=== PATIENT | female | born 1975 | race Caucasian/White ===

== ENCOUNTER 2024-12-07 10:32 | Inpatient (IN) | payer SELFPAY ==
[2024-12-07] VITALS (23 sets, daily range): BP systolic 111–148; BP diastolic 68–80; PULSE 64–98; RESP 12–21; TEMP 35.6–36.8; O2SAT 93–100; BMI 25.4
--- NOTE | 2024-12-07 10:48 | EKG12_ITS ---
Test Reason : GENERAL Blood Pressure : */* mmHG Vent. Rate : 83 BPM Atrial Rate : * BPM P-R Int : * ms QRS Dur : 82 ms QT Int : 392 ms P-R-T Axes : * 35 41 degrees QTcB Int : 460 ms Sinus rhythm Abnormal ECG Confirmed by SURY WOODSON, AFSHAN ([id number]), development editor PARAM DAVIS ([id number]) on 12/13/2024 11:18:37 AM Referred By: Confirmed By: AFSHAN GA MD
--- NOTE | 2024-12-07 11:38 | EX.ED.DYSGE1 ---
HPI History of Present Illness Chief Complaint: Weakness Narrative Narrative: Patient is a 49-year-old female with a past medical history of cirrhosis, anemia, alcohol use states that she drinks 2 beers daily no hard liquor who presents to the emergency department with chief complaint of I think my hemoglobin is low and wanting detox. Patient states that her last drink was shortly prior to arrival here to the emergency department. She states that she has had delirium tremens before but has not had any seizures. Patient is complaining of some back pain and states that her back pain occurs when her blood count is low. PFSH PFSH Home Medications ?Medication ?Instructions ?Recorded ?Last Taken ?Type Water Pill 3 tab PO DAILY FLUID RETENTION 12/07/24 12/06/24 History pediatric multivitamin no.136 2 tab PO DAILY 12/07/24 12/06/24 History (Children Multivitamin chewable tablet) Allergy/AdvReac Type Severity Reaction Status Date / Time latex Allergy Intermediate Rash Verified 12/07/24 10:36 Social History Smoking Status: Current every day smoker tobacco type: cigarettes ROS ROS ED ROS Narrative Constitutional: Denies fevers, chills, headaches Eyes: Denies change in vision double vision blurry vision Cardiovascular: Denies chest pain or palpitations Respiratory: Denies coughing wheezing shortness of breath Abdomen: Denies abdominal pain nausea vomit diarrhea : Denies urinary symptoms Neurological: Complains of generalized weakness denies numbness, tingling Musculoskeletal: Complains of back pain Skin: Denies rashes or lesions EXAM Physical Exam Narrative Exam Narrative: General: Patient was lying in bed rest comfortably did not appear to be in acute distress Head: Atraumatic, normocephalic Eyes: PERRL bilaterally, EOMI bilaterally, no conjunctival injection noted Neck: Soft, supple, trachea midline Cardiovascular: Regular rate and rhythm no murmurs gallops rubs noted Respiratory: Clear to auscultation bilaterally no rales rhonchi or wheezes noted Abdomen: Soft, nondistended, no tenderness to palpation Extremities: +5/5 strength noted in the bilateral upper and lower extremities, radial pulses +2/4 in the bilateral per extremities, no pedal edema no exam Neurological: Patient following commands and that she was at [facility] year is 2024 Skin: Warm, dry, intact no rashes or lesions noted Const Vital Signs: 12/07/24 10:33 12/07/24 12:32 12/07/24 13:19 Temperature 96.0 F L 97.9 F Temperature Source Temporal Temporal Pulse Rate 88 78 76 Respiratory Rate 16 18 20 H Blood Pressure 111/72 117/78 115/72 Blood Pressure Mean 85 91 86 Blood Pressure Source Pulse Ox 100 95 100 Oxygen Delivery Method Room Air Room Air 12/07/24 13:34 12/07/24 14:00 12/07/24 14:15 Temperature 98.3 F 98 F Temperature Source Temporal Pulse Rate 96 86 Respiratory Rate 21 H 20 H 18 Blood Pressure 148/68 H 116/70 116/70 Blood Pressure Mean 94 85 85 Blood Pressure Source Monitor Pulse Ox 97 95 99 Oxygen Delivery Method Room Air 12/07/24 14:34 12/07/24 15:34 12/07/24 16:22 Temperature 98 F 98.1 F 98.2 F Temperature Source Oral Oral Oral Pulse Rate 86 98 67 Respiratory Rate 19 H 17 14 Blood Pressure 116/75 118/70 118/70 Blood Pressure Mean 88 86 86 Blood Pressure Source Monitor Pulse Ox 100 99 99 Oxygen Delivery Method Room Air Room Air Room Air 12/07/24 16:27 12/07/24 16:30 12/07/24 16:42 Temperature 98 F 98 F 98.1 F Temperature Source Oral Oral Oral Pulse Rate 70 68 70 Respiratory Rate 15 15 14 Blood Pressure 121/71 H 121/70 H 114/78 Blood Pressure Mean 87 87 90 Blood Pressure Source Monitor Pulse Ox 99 99 96 Oxygen Delivery Method Room Air Room Air Room Air MDM MDM MDM Narrative Medical decision making narrative: Patient is a 49-year-old female who presents to the emergency department with a chief complaint of wanting detox, concern for anemia and back pain. On the differential diagnose includes but not limited to anemia, alcohol withdrawal. Once workup is obtained reviewed she will be reevaluated. Patient be given Toradol for pain. Patient will be placed on alcohol withdrawal protocol. Patient CBC reviewed showed a white blood count 1.9, hemoglobin is low at 4.4 she was typed and screened for 3 units, patient has a microcytic anemia MCV of 79.3, plate count was noted be 39 no active bleeding noted, venous blood gas showed pH 7.45. Patient sodium normal 136, potassium normal 3.3, patient's carbon dioxide level low at 16.2, anion gap elevated 17 this likely secondary to alcoholic ketosis, TSH was noted to be 2.58., is negative, urinalysis showed no evidence of infection and drug screen negative. Patient alcohol level was 324. Patient was ordered D5 NS at 100 cc an hour. Patient's case will be discussed with hospitalist for admission for stabilization prior to detox. Discussed case with hospitalist Dr. Millan who would like to add on a fecal occult as well as CTA chest abdomen pelvis which were ordered. Once these are obtained and reviewed she will be reevaluated. Patient's CTA chest abdomen pelvis was reviewed and showed concern for portal hypertension there is thrombosis present within the superior mesenteric, inferior mesenteric vein and potential splenic vein. Large splenorenal shunt present indicative of portal hypertension. Small. [place]ock ascites noted. Heterogeneous appearance of the liver. Given suspicions of portal pretension GI consultation and cirrhosis need to be ruled out. Thickening of the gastroesophageal junction noted. Did give the patient a gram of Rocephin. Discussed case again with Dr. Millan hospitalist who is recommending transfer as well as we do not have gastroenterology on-call today. Did discuss with patient and she states that she has been in the [facility] in the past. Will reach out to [facility] for transfer. Patient's case signed out to oncoming provider to make ultimate disposition see their note for further details. Went back and reevaluated patient and she states that she has had EGD about a year ago and has had varices in the past. States that she had banding of the varices as well. Will wait to discuss with [facility] in regards to octreotide bolus with octreotide drip. She has remained hemodynamically stable thus far in the emergency department. Lab Data Labs: Laboratory Results - last 24 hr 12/07/24 12/07/24 12/07/24 11:35 12:10 13:00 WBC 1.9 L RBC 2.08 L Hgb 4.4 L* Hct 16.5 L MCV 79.3 L MCH 21.2 L MCHC 26.7 L RDW Std Deviation 55.9 H RDW Coeff of Jose Alberto 19.6 H Plt Count 39 L* MPV 10.3 Immature Gran % (Auto) 1.600 H Neut % (Auto) 61.8 Lymph % (Auto) 31.4 Donley % (Auto) 5.2 Eos % (Auto) 0.0 Baso % (Auto) 0.0 Absolute Neuts (auto) 1.2 L Absolute Lymphs (auto) 0.60 L Nucleated RBC % 0 Diff Path Review May foll Platelet Estimate MKD DEC Immature Plt Fraction 4.9 Polychromasia 1+ Anisocytosis 1+ Retic Count 4.03 H Immature Retic Fraction 37.10 H Retic Hgb Equivalent 18.3 L Sodium 136 Potassium 3.3 Chloride 103 Carbon Dioxide 16.2 L Anion Gap 17 H BUN 11 Creatinine 0.51 L Estim Creat Clear Calc 135.26 Est GFR (MDRD) Non-Af 115 BUN/Creatinine Ratio 21.8 H Glucose 88 Calcium 8.3 Iron 13 L TIBC 416 Iron Saturation 3.0 L Unsaturated IBC 403 Ferritin 9 L b-Hydroxybutyric mmol/L 0.4 TSH 2.580 Serum , Qual NEGATIVE Urine Color Yellow Urine Clarity Sl. Cloudy Urine pH 6.0 Ur Specific [place] 1.020 Urine Protein 30 H Urine Glucose (UA) Normal Urine Ketones 5 H Urine Occult Blood 10 H Urine Nitrite Negative Urine Bilirubin Negative Urine Urobilinogen 1 H Ur Leukocyte Esterase Negative Urine RBC 0-5 SEEN Urine WBC 0-5 SEEN Ur Squamous Epith Cells 0-5 SEEN Urine Bacteria 0 SEEN Urine Mucus 0 SEEN Urine Opiates Screen NEGATIVE U Buprenorphine Qual NEGATIVE Ur Oxycodone Screen NEGATIVE Urine Methadone Screen NEGATIVE Urine Fentanyl Screen NEGATIVE Ur Barbiturates Screen NEGATIVE Ur Phencyclidine Scrn NEGATIVE Ur Amphetamines Screen NEGATIVE U Benzodiazepines Scrn NEGATIVE Urine Cocaine Screen NEGATIVE U Cannabinoids Screen NEGATIVE Ethyl Alcohol 324.0 H* Blood Type O NEGATIVE Antibody Screen NEGATIVE Crossmatch See Detail ABG Data ABG results: ABG 12/07/24 13:51 Specimen Type CRISTÓBAL Sample Site Not entered VBG pH 7.45 H VBG pO2 75 H VBG HCO3 18 L VBG Total CO2 18 L VBG O2 Sat (Calc) 96 H VBG Base Excess -6 L POC Mix VBG pCO2 Pt Tmp 25.3 L O2 Delivery Device Not entered Radiography Diagnostic Testing: Clinical Impression(s) from Imaging Studies Chest/Abdomen/Pelvis CTA 12/07/24 14:46 IMPRESSION: Findings worrisome for portal hypertension. Thrombosis is present within the superior mesenteric, inferior mesenteric vein and potentially the splenic vein. Large splenorenal shunt is present, all indicative of portal hypertension. Small perihepatic ascites is seen. Heterogeneous appearance of the liver. Given suspicion of portal hypertension, GI consultation and cirrhosis be ruled out. Thickening of the gastroesophageal junction. Correlate clinically for reflux disease. No evidence of abnormal collection seen within the chest, abdomen and pelvis. One or more dose reduction techniques were used (e.g., Automated exposure control, adjustment of the mA and/or kV according to patient size, use of iterative reconstruction technique). Reading Location: [facility] Discharge Plan Triage Chief Complaint: Weakness ED Provider: Kye Thomas Dx/Rx/DC Orders Prescriptions: No Action Children Multivitamin Tablet,Chewable 2 tab PO DAILY Water Pill tablet 3 tab PO DAILY Rx Instructions: OTC WATER PILL : CALCIUM 132MG, POTASSIUM 101MG, HYDRANGEA ROOT 65MG, CORNSILK 65MG Primary Care Provider: Care Physician,No Primary Referrals: NOT,DEFINED [Non-Staff] - Print Language: Spanish
[2024-12-07 11:52] LABS: Absolute Neutrophil Count 1.2 X10^3/uL (2.0-7.7); Hematocrit 16.5 % (37-47); Lymphocyte % 31.4 % (19-41); Mean Corp Hgb Conc 26.7 g/dL (32-36); Mean Corpuscular Hgb 21.2 pg (27.0-32.0); Mean Corpuscular Volume 79.3 fL (81-99); Mean Platelet Vol. 10.3 fl (6.2-12.0); Monocyte% 5.2 % (0-10); NRBC Flagged by Analyzer 0 % (0-5); Neutrophil # 1.18 X10^3/uL (2.7-7.7); Neutrophil % 61.8 % (47-70); POSITIVE COUNT YES; POSITIVE DIFFERENTIAL YES; RBC Distribution Width CV 19.6 % (11.6-14.6); RBC Distribution Width SD 55.9 fl (35.1-43.9); Red Blood Count 2.08 M/mm3 (4.2-5.4); White Blood Count 1.9 K/mm3 (4.4-11.0)
[2024-12-07] MEDS: Ketorolac 15 MG/ML Vial IV (11:52)
[2024-12-07 11:58] LABS: Differential Indicated SCAN CRITERIA MET
[2024-12-07 11:59] LABS: Hemoglobin 4.4 g/dL (12.0-15.0); Platelet Count 39 K/mm3 (150-450)
[2024-12-07 12:00] LABS: Internal QC Validated? YES +Cl - CLEAR BKGD; Pregnancy, Serum, hCG Quali. NEGATIVE Negative
[2024-12-07 12:43] LABS: Anion Gap 17 (5-15); Anisocytosis 1+; BUN 11 mg/dL (4-19); BUN/Creat Ratio 21.8 RATIO (10-20); Calcium,Total 8.3 mg/dL (7.6-11.0); Carbon Dioxide 16.2 mmol/L (21.0-32.0); Chloride 103 mmol/L (98-108); Creatinine, Serum 0.51 mg/dL (0.70-1.20); EST Glomerular Filtration Rate 115 (>60); Estimated Creatinine Clearance 135.26 ml/min (50-250); Glucose 88 mg/dL (70-99); Platelet Estimate MKD DEC (ADEQ); Polychromasia 1+; Potassium 3.3 mmol/L (3.3-5.1); Sodium Level 136 mmol/L (133-145)
[2024-12-07 12:44] LABS: Pathologist Review May foll
[2024-12-07] MEDS: Morphine 2 MG/ML Syringe IV ×3 (13:05→21:06)
[2024-12-07] MEDS: Ondansetron 4 MG/2 ML Vial IV ×2 (13:05→16:36)
[2024-12-07 13:08] LABS: Bacteria 0 SEEN /hpf (None Seen); Mucous, Urine 0 SEEN /hpf (<or=2+)
[2024-12-07 13:10] LABS: Color, Urine Yellow (Yellow); Glucose, Dipstick Normal (Normal); Ketone-Dipstick 5 mg/dl (Negative); Leukocyte Esterase-Dipstick Negative /ul (Negative); Nitrite-Dipstick Negative (Negative); Occult Blood-Urine 10 /ul (Negative); Protein-Dipstick 30 mg/dl (Negative); Urine Bilirubin Dipstick Negative (Negative); Urine Clarity Sl. Cloudy (Clear); Urine Urobilinogen 1 mg/dl (Normal)
[2024-12-07 13:28] LABS: Red Blood Cells-Urine 0-5 SEEN /hpf (0-5); Squamous Epithelial Cells - UA 0-5 SEEN /hpf (5-10); White Blood Cells 0-5 SEEN /hpf (0-5)
[2024-12-07 13:43] LABS: Amphetamine Urine NEGATIVE (<1000 ng/mL); Barbiturate Urine NEGATIVE (< 200 ng/mL); Benzodiazepine Urine NEGATIVE (< 200 ng/mL); Buprenorphine Urine NEGATIVE (< 200 ng/mL); Cocaine Urine NEGATIVE (< 300 ng/mL); Fentanyl, Urine NEGATIVE; Methadone Urine NEGATIVE (< 300 ng/mL); Opiates Urine NEGATIVE (< 300 ng/mL); Oxycodone, Urine NEGATIVE (< 100 ng/mL); PCP Urine NEGATIVE (< 25 ng/mL); THC Urine NEGATIVE (< 50 ng/mL)
[2024-12-07 13:57] LABS: Blood Gas Specimen Type VEN; O2 Delivery Device Not entered; SITE Not entered; VBG BASE EXCESS -6 mmol/L (-1.0-3.5); VBG Bicarbonate 18 mmol/L (22-26); VBG PO2 75 mmHg (25-40); VBG SO2 96 % (50-70); VBG TCO2 18 mmol/L (23-33); VBG pCO2 25.3 mmHg (41-51); VBG pH 7.45 (7.32-7.42)
[2024-12-07] MEDS: Dextrose 5%/0.9% NaCl 1,000 ML 100 ML IV (14:13)
--- NOTE | 2024-12-07 14:46 | CT_ITS ---
PROCEDURE: CTA CHST, ABD, PEL W AND/OR WO REASON FOR EXAM: BACK PAIN, ANEMIA TECHNIQUE: CTA imaging of the chest with intravenous contrast and 3D reconstructions. CT imaging of the abdomen and pelvis using the same intravenous contrast dose. IV CONTRAST: 100 cc of Isovue 370. COMPARISON: None. FINDINGS: CHEST CTA: The trachea and central bronchial tree is patent. There is no pleural pericardial effusion. The heart is normal in size. There is no mediastinal hematoma. The pulmonary arteries appear normal in size and caliber. There is no filling defect to suggest pulmonary arterial embolism. The aorta is without evidence of aneurysm or dissection. There is no pneumothorax. There are streaky changes at the lung bases likely due to atelectasis. No suspicious pulmonary masses identified. No acute osseous abnormality seen within the chest. CT abdomen/pelvis: There is no free air within the abdomen or pelvis. Small anterior perihepatic ascites is present. This is best seen on image 103/249. The liver does appear heterogeneous. This is nonspecific. Tiny gallstones within the gallbladder. There is apparent filling defects present within the superior mesenteric vein, inferior mesenteric vein and potentially of the splenic vein. The portal vein appears prominent measuring up to 1.6 cm. There are very large varices within the left upper abdominal quadrant. Enlarged splenorenal shunt is present. These findings are suggestive of portal hypertension. The spleen is normal in size. The bilateral kidneys are without evidence of stones or obstructive uropathy.. There is no hydronephrosis. The urinary bladder is not distended. The prostate is nonenlarged. There is no bowel obstruction. The appendix is normal. No abnormal free fluid is seen within the abdomen or pelvis. There is thickening of the gastroesophageal junction. Correlate with reflux disease. No large retroperitoneal adenopathy is present. The uterus is not visualized may be surgically absent. Correlate clinically. 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 Correlate clinically. Postsurgical changes present within the right acetabulum. No acute osseous abnormality identified. CT/CTA Chst, Abd, Pel W and/or WO IMPRESSION: Findings worrisome for portal hypertension. Thrombosis is present within the s uperior mesenteric, inferior mesenteric vein and potentially the splenic vein. Large splenorenal shunt is present, all indicati ve of portal hypertension. Small perihepatic ascites is seen. Heterogeneous appearance of the liver. Given suspicion of portal hypertension, GI consultation and cirrhosis be ruled out. Thickening of the gastroesophageal junction. Correlate clinically for reflux d isease. No evidence of abnormal collection seen within the chest, abdomen and pelvis. One or more dose reduction techniques were used (e.g., Automated exposure contr ol, adjustment of the mA and/or kV according to patient size, use of iterative reconstruction technique). Reading Location: [id number]
--- NOTE | 2024-12-07 14:52 | CM.ED ---
Social work Reason for referral: no PCP/insurance Referral source: case find/Shirley registration This SW identified patient's lack of PCP/lack of insurance and need for resources. Shirley from Registration approached this SW as well stating patient's need for help applying for Medicaid and patient's statement of patient's father recently passing away. SW entered patient's room, introducing self and role at [facility]. Patient welcomed SW visit and stated needing to be done with drinking alcohol. Patient stated recently moving to [place] from [place] to care for patient's father who recently . Patient stated this has been a stressor contributing to patient's alcohol intake, as well as patient's relationship with patient's mother and a bad romantic relationship patient was recently in. Patient stated desiring to get myself back and stated being willing to do whatever it takes. Patient stated wanting to complete residential treatment following detox at [facility]. Patient stated patient's sister's friend and both recommended [facility] and [facility] for follow up care. Patient open to SW contacting Traci from [employer] to help patient apply for Medicaid. Despite living in [place], patient was also accepting of [facility] Provider Directory and Joana Quevedo information in order to obtain a PCP due to being impressed with [facility] so far. No further needs identified at this time. This SW called and left a secure voicemail for Traci ([phone]) and sent Traci an email asking for help with patient's application for Medicaid. Nguyen Reinoso, SPACE AND STORAGE CLERK, [employer] DEVEL[employer]
[2024-12-07 15:33] LABS: Immature Platelet Fraction 4.9 % (1.0-7.9); Platelet Count 40 K/mm3 (150-450); RET-HE 18.3 pg (30-35); Reticulocyte Count 4.03 % (0.5-1.5)
[2024-12-07 15:58] LABS: Ferritin 9 ng/mL (22-378); Iron 13 ug/dL (50-170); Iron Binding Capacity,Total 416 ug/dL (250-450); Iron Binding Capacity,Unsat 403 ug/dL (228-428)
[2024-12-07 16:02] LABS: BETA-HYDROXYBUTYRATE 0.4 mmol/L (0.0-0.3)
[2024-12-07] MEDS: Pantoprazole Sodium 40 MG in 0.9% Normal Saline (100mL MB+) 100 ML 330 MG IV (16:36)
[2024-12-07] MEDS: Ceftriaxone 1 GM/50 ML BAG IV (17:54)
--- NOTE | 2024-12-07 17:55 | ED.RN ---
CALLED [facility] AT [phone] THEY CALLED BACK AND REFUSED. PATIENT SEES GI AT [facility]. 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
[2024-12-07 18:08] LABS: International Normalized Ratio 1.2; Prothrombin Time (Protime)PT. 15.6 SECONDS (11.7-14.9)
[2024-12-07 18:09] LABS: Partial Thromboplast Time 33.5 Seconds (24.1-36.2)
[2024-12-07 18:16] LABS: AST(SGOT) 42 U/L (<=31); Alanine Aminotransfer ALT/SGPT 14 U/L (<=34); Albumin, Serum 3.4 g/dL (3.5-5.0); Alkaline Phosphatase 111 U/L (35-104); Bilirubin, Direct 0.62 mg/dL (0.00-0.30); Globulin 2.6 g/dL (2.2-4.2); Total Bilirubin 1.03 mg/dL (0.00-1.30)
[2024-12-07 20:13] LABS: Bedside Glucose 86 mg/dL (74-106)
--- NOTE | 2024-12-07 20:55 | ED.RN ---
Called [facility] to follow up, pt was accepted to [facility] direct admit by Dr. Iglesias @ [phone]. Transfer center nurse stated bed would likely not be available until tomorrow.
--- NOTE | 2024-12-07 23:48 | PCM.HP.STD ---
HPI - General General Date of Admission: 12/08/24 Date of Service: 12/07/24 Chief Complaint: Wanted EtOH Detox. 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 Patient admitted to drinking shortly prior to arrival in the ER with a JESENIA of 324 mg/dL present on admission complicated by laboratory evidence of pancytopenia; with Leukopenia of 1.9K with Left-shift of 1.6%, hemoglobin of 4.4 g/dL and platelet count of 39K all present on admission as well. She admitted to back pain that has corresponded to a low hemoglobin in the past but she denied history of delirium tremens or alcohol withdrawal seizures previously. She admitted she recently moved to [place], [place] after the of her father which apparently triggered this latest drinking binge. The ER physician then contacted the swing-shift hospitalist for admission and further direction was given to the ER physician to check fecal occult blood as well as obtain a CTA of the chest, abdomen and pelvis before she could be safely admitted here. Unfortunately, her CT scan done at 4:36 PM revealed findings worrisome for portal hypertension with thrombosis present within the superior mesenteric, inferior mesenteric vein and potentially the splenic vein. Large splenorenal shunt is present all indicative of portal hypertension. Small perihepatic ascites is seen with heterogenous appearance of the liver given suspicion of portal hypertension GI consultation was recommended with cirrhosis to be ruled out. There was also mention of thickening of the gastroesophageal junction to be correlated clinically for reflux disease. The ER physician then initially spoke to [facility] but they were informed that this patient has previously established care with [facility] [place]. The patient was then transfused 3 units of PRBCs plus platelets and she was empirically treated with IV Rocephin and IV Protonix in addition to 3 doses of as needed IV morphine for recurrent back pain with persistently stable vital signs throughout the day. At 6:17 PM there is a note by the following ER physician that they contacted the [facility] [place] transfer line and he was informed that the patient had been through their system in August 2024 with a hemoglobin of 7.9 g/dL with leukopenia of 2.7K and a platelet count of 50K at that time and she had previously been diagnosed with cirrhosis. Patient was tentatively accepted to [facility] at [address] Iglesias with no a bed availability up to this time at approximately midnight on December 08, 2024 so the hospitalist service was then recontacted to admit this patient due to her prolonged stay in the ER greater than 6 hours as per this hospital's policy until such time a bed becomes available. The ER physician was asked to contact the platform software engineer here to make him aware of this patient's presence in the hospital in case she decompensates with further recommendation to begin treatment with IV octreotide. She was then admitted to the ICU for ongoing care for stay that is expected to extend beyond 2 midnights. PFSH Home Medications ?Medication ?Instructions ?Recorded ?Last Taken ?Type Water Pill 3 tab PO DAILY FLUID RETENTION 12/07/24 12/06/24 History pediatric multivitamin no.136 2 tab PO DAILY 12/07/24 12/06/24 History (Children Multivitamin chewable tablet) Allergy/AdvReac Type Severity Reaction Status Date / Time latex Allergy Intermediate Rash Verified 12/07/24 10:36 Social History Smoking Status: Current every day smoker tobacco type: cigarettes ROS ROS Narrative Review of Systems: Constitutional: Patient admits to generalized weakness but denies fever or chills. Eyes: Patient denies changes in vision or discharge from eyes. ENT: Patient denies runny nose, sore throat or ear pain. Resp: Patient denies shortness of breath or cough. CV: Patient denies chest pain, palpitations, heart racing or lower extremity edema. GI: Patient denies abdominal pain, nausea, vomiting, diarrhea or constipation. : Patient denies dysuria, hematuria or urinary frequency. MSK: Patient admits to intermittent severe back pain previously correlated with anemia in addition to generalized weakness. Skin: Patient denies rash, abscess, wounds or jaundice. Psych: Patient denies symptoms of uncontrolled depression or anxiety. Neuro: Patient denies headache, paresthesias or focal neurologic deficits. Allergy: Patient denies lip swelling, tongue swelling or urticaria. Hematology: Patient denies recent bleeding. Endocrinology: Patient denies polyuria, polydipsia or polyphagia. 14 point review of systems otherwise negative except for positives noted above in HPI. Vital Signs Vital Signs Vital Signs: 12/07/24 10:33 12/07/24 12:32 12/07/24 13:19 Temperature 96.0 F L 97.9 F Temperature Source Temporal Temporal Pulse Rate 88 78 76 Respiratory Rate 16 18 20 H Blood Pressure 111/72 117/78 115/72 Blood Pressure Mean 85 91 86 Blood Pressure Source Blood Pressure Position Blood Pressure Location Pulse Ox 100 95 100 Oxygen Delivery Method Room Air Room Air 12/07/24 13:34 12/07/24 14:00 12/07/24 14:15 Temperature 98.3 F 98 F Temperature Source Temporal Pulse Rate 96 86 Respiratory Rate 21 H 20 H 18 Blood Pressure 148/68 H 116/70 116/70 Blood Pressure Mean 94 85 85 Blood Pressure Source Monitor Blood Pressure Position Blood Pressure Location Pulse Ox 97 95 99 Oxygen Delivery Method Room Air 12/07/24 14:34 12/07/24 15:34 12/07/24 16:22 Temperature 98 F 98.1 F 98.2 F Temperature Source Oral Oral Oral Pulse Rate 86 98 67 Respiratory Rate 19 H 17 14 Blood Pressure 116/75 118/70 118/70 Blood Pressure Mean 88 86 86 Blood Pressure Source Monitor Blood Pressure Position Blood Pressure Location Pulse Ox 100 99 99 Oxygen Delivery Method Room Air Room Air Room Air 12/07/24 16:27 12/07/24 16:30 12/07/24 16:42 Temperature 98 F 98 F 98.1 F Temperature Source Oral Oral Oral Pulse Rate 70 68 70 Respiratory Rate 15 15 14 Blood Pressure 121/71 H 121/70 H 114/78 Blood Pressure Mean 87 87 90 Blood Pressure Source Monitor Blood Pressure Position Blood Pressure Location Pulse Ox 99 99 96 Oxygen Delivery Method Room Air Room Air Room Air 12/07/24 17:42 12/07/24 18:00 12/07/24 18:22 Temperature 98.1 F 98.1 F Temperature Source Oral Oral Pulse Rate 68 75 68 Respiratory Rate 14 17 13 Blood Pressure 123/72 H 118/70 118/70 Blood Pressure Mean 89 86 86 Blood Pressure Source Blood Pressure Position Blood Pressure Location Pulse Ox 99 95 96 Oxygen Delivery Method Room Air Room Air Room Air 12/07/24 18:26 12/07/24 18:41 12/07/24 19:41 Temperature 98.2 F 98.2 F 98.1 F Temperature Source Oral Oral Oral Pulse Rate 67 66 73 Respiratory Rate 13 14 15 Blood Pressure 119/71 119/78 125/78 H Blood Pressure Mean 87 91 93 Blood Pressure Source Monitor Blood Pressure Position Semi-Fowlers Blood Pressure Location Pulse Ox 96 96 96 Oxygen Delivery Method Room Air Room Air Room Air 12/07/24 19:41 12/07/24 20:00 12/07/24 20:30 Temperature 98 F 98.0 F Temperature Source Oral Oral Pulse Rate 66 66 64 Respiratory Rate 12 12 12 Blood Pressure 134/77 H 125/78 H 132/80 H Blood Pressure Mean 96 93 97 Blood Pressure Source Monitor Monitor Blood Pressure Position Semi-Fowlers Semi-Fowlers Blood Pressure Location Pulse Ox 94 100 97 Oxygen Delivery Method Room Air Room Air Room Air 12/07/24 22:00 12/07/24 23:11 12/07/24 23:26 Temperature 98 F 98 F Temperature Source Oral Oral Pulse Rate 65 66 73 Respiratory Rate 12 12 12 Blood Pressure 126/76 H 134/77 H 139/79 H Blood Pressure Mean 92 96 99 Blood Pressure Source Monitor Monitor Blood Pressure Position Semi-Fowlers Semi-Fowlers Blood Pressure Location Right Arm Pulse Ox 93 94 94 Oxygen Delivery Method Room Air Room Air Room Air Weight Weight: 157 lb 12.8 oz Body Mass Index (BMI) 25.4 Physical Exam Const alert, oriented x3, no apparent distress and average body habitus Constitutional Narrative: Patient chronically ill in appearance. General Appearance: cooperative HEENT normocephalic, head/scalp atraumatic, hearing grossly normal bilaterally and moist oral mucous membranes Eyes PERRL and EOMs intact bilaterally Eyes Narrative: Conjunctival pallor noted bilaterally. Neck no lymphadenopathy and supple Resp normal respiratory effort, no retractions, no use of accessory muscles and clear to auscultation bilaterally Cardio regular rate and regular rhythm GI normal to inspection, nondistended, normoactive bowel sounds, soft to palpation, non-tender and non-distended Extremity normal to inspection, full ROM and no clubbing, cyanosis or edema Skin Skin Narrative: Patient has evidence of rash, abscess, wounds or jaundice. Neuro oriented x3, CN's II-XII intact bilaterally, moves all extremities and no focal motor deficits Sensorium / Orientation: awake, alert, oriented to person, oriented to place and oriented to time Speech: speech normal Psych affect normal Results Medical Records Data Attestation: I reviewed the patient's medical records Lab / Micro Data Attestation: I reviewed the patient's lab results. 12/08/24 02:55 12/08/24 02:55 Labs: Laboratory Results - last 24 hr 12/07/24 11:35: WBC 1.9 L, RBC 2.08 L, Hgb 4.4 L*, Hct 16.5 L, MCV 79.3 L, MCH 21.2 L, MCHC 26.7 L, RDW Std Deviation 55.9 H, RDW Coeff of Jose Alberto 19.6 H, Plt Count 39 L*, MPV 10.3, Immature Gran % (Auto) 1.600 H, Neut % (Auto) 61.8, Lymph % (Auto) 31.4, [place] % (Auto) 5.2, Eos % (Auto) 0.0, Baso % (Auto) 0.0, Absolute Neuts (auto) 1.2 L, Absolute Lymphs (auto) 0.60 L, Nucleated RBC % 0, Diff Path Review January, Platelet Estimate MKD DEC, Immature Plt Fraction 4.9, Polychromasia 1+, Anisocytosis 1+, Retic Count 4.03 H, Immature Retic Fraction 37.10 H, Retic Hgb Equivalent 18.3 L, Sodium 136, Potassium 3.3, Chloride 103, Carbon Dioxide 16.2 L, Anion Gap 17 H, BUN 11, Creatinine 0.51 L, Estim Creat Clear Calc 135.26, Est GFR (MDRD) Non-Af 115, BUN/Creatinine Ratio 21.8 H, Glucose 88, Calcium 8.3, Iron 13 L, TIBC 416, Iron Saturation 3.0 L, Unsaturated IBC 403, Ferritin 9 L, b-Hydroxybutyric mmol/L 0.4, TSH 2.580, Serum , Qual NEGATIVE, Ethyl Alcohol 324.0 H* 12/07/24 12:10: Blood Type O NEGATIVE, Antibody Screen NEGATIVE, Crossmatch See Detail 12/07/24 13:00: Urine Color Yellow, Urine Clarity Sl. Cloudy, Urine pH 6.0, Ur Specific [place] 1.020, Urine Protein 30 H, Urine Glucose (UA) Normal, Urine Ketones 5 H, Urine Occult Blood 10 H, Urine Nitrite Negative, Urine Bilirubin Negative, Urine Urobilinogen 1 H, Ur Leukocyte Esterase Negative, Urine RBC 0-5 SEEN, Urine WBC 0-5 SEEN, Ur Squamous Epith Cells 0-5 SEEN, Urine Bacteria 0 SEEN, Urine Mucus 0 SEEN, Urine Opiates Screen NEGATIVE, U Buprenorphine Qual NEGATIVE, Ur Oxycodone Screen NEGATIVE, Urine Methadone Screen NEGATIVE, Urine Fentanyl Screen NEGATIVE, Ur Barbiturates Screen NEGATIVE, Ur Phencyclidine Scrn NEGATIVE, Ur Amphetamines Screen NEGATIVE, U Benzodiazepines Scrn NEGATIVE, Urine Cocaine Screen NEGATIVE, U Cannabinoids Screen NEGATIVE 12/07/24 17:32: PT 15.6 H, INR 1.2, APTT 33.5, Total Bilirubin 1.03, Direct Bilirubin 0.62 H, AST 42 H, ALT 14, Alkaline Phosphatase 111 H, Total Protein 6.0, Albumin 3.4 L, Globulin 2.6 12/07/24 19:55: POC Glucose 86 Micro: Microbiology 12/07/24 15:19 Stool Stool Occult Blood (YUE) - Final Occult Blood Positive ABG Data ABG results: ABG 12/07/24 13:51 Specimen Type CRISTÓBAL Sample Site Not entered VBG pH 7.45 H VBG pO2 75 H VBG HCO3 18 L VBG Total CO2 18 L VBG O2 Sat (Calc) 96 H VBG Base Excess -6 L POC Mix VBG pCO2 Pt Tmp 25.3 L O2 Delivery Device Not entered Imaging Radiology Impression Chest/Abdomen/Pelvis CTA 12/07/24 14:46 IMPRESSION: Findings worrisome for portal hypertension. Thrombosis is present within the superior mesenteric, inferior mesenteric vein and potentially the splenic vein. Large splenorenal shunt is present, all indicative of portal hypertension. Small perihepatic ascites is seen. Heterogeneous appearance of the liver. Given suspicion of portal hypertension, GI consultation and cirrhosis be ruled out. Thickening of the gastroesophageal junction. Correlate clinically for reflux disease. No evidence of abnormal collection seen within the chest, abdomen and pelvis. One or more dose reduction techniques were used (e.g., Automated exposure control, adjustment of the mA and/or kV according to patient size, use of iterative reconstruction technique). Reading Location: [id number] Assessment & Plan Assessment/Plan (1) Anemia: QUALIFIERS: Anemia type: unspecified type Qualified Code(s): D64.9 - Anemia, unspecified (2) Pancytopenia: (3) Acute alcohol intoxication: QUALIFIERS: Complication of substance-induced condition: with unspecified complication Qualified Code(s): F10.929 - Alcohol use, unspecified with intoxication, unspecified (4) Chronic alcohol abuse: (5) Alcoholic cirrhosis: QUALIFIERS: Ascites presence: with ascites Qualified Code(s): K70.31 - Alcoholic cirrhosis of liver with ascites (6) Chronic thrombosis of splenic vein: (7) Inferior mesenteric vein thrombosis: (8) Superior mesenteric vein thrombosis: (9) Tobacco abuse: PLAN: Plan 1. CT scan done at 4:36 PM revealed findings worrisome for portal hypertension with thrombosis present within the superior mesenteric, inferior mesenteric vein and potentially the splenic vein. Large splenorenal shunt is present all indicative of portal hypertension. Small perihepatic ascites is seen with heterogenous appearance of the liver given suspicion of portal hypertension GI consultation was recommended with cirrhosis to be ruled out. There was also mention of thickening of the gastroesophageal junction to be correlated clinically for reflux disease. Complicated by laboratory evidence of pancytopenia; with Leukopenia of 1.9K with Left-shift of 1.6%, hemoglobin of 4.4 g/dL and platelet count of 39K all present on admission. The ER physician then initially spoke to [facility] but they were informed that this patient has previously established care with [facility] [place]. The patient was then transfused 3 units of PRBC's plus platelets and she was empirically treated with IV Rocephin and IV Protonix in addition to 3 doses of as needed IV morphine for recurrent back pain with persistently stable vital signs throughout the day with hemoglobin now up to 7.3 g/dL - Transfer to [facility] when a bed becomes available. Recheck CBC with differential in a.m. to follow trend and to see if more blood or platelets will need to be transfused. We will change empiric coverage with IV piperacillin-tazobactam and continue IV Protonix as previous. Give morphine IV as needed for severe (level 6-10/10) pain. Give ondansetron IV as needed for nausea and vomiting. Resume IV octreotide. Finally, we will consult gastroenterology to see this patient on rounds in the a.m. for further recommendations with help appreciated in advance. 2. Acute EtOH Intoxication with JESENIA of 324 mg/dL present on admission in the setting of Chronic EtOH Abuse compounding #1 - Start prophylactic treatment with IV phenobarbital to prevent impending EtOH withdrawal. EtOH Cessation will be strongly encouraged. 3. [facility] [place] noted the patient had been through their system in August 2024 with a hemoglobin of 7.9 g/dL with leukopenia of 2.7K and a platelet count of 50K at that time and she had previously been diagnosed with Cirrhosis, chronic pancytopenia, history of superior mesenteric vein thrombosis and chronic thrombosis of the splenic vein adding to the medical complexity of #1 & #2 - Noted with progressively worsening pattern of illness. 4. History of Tobacco Abuse adding to the burden of disease outlined from #1 - #3 - Tobacco Cessation will be strongly encouraged with Nicotine patch offered to control cravings. 5. DVT prophylaxis - Due to patient's severe thrombocytopenia of 39K present on admission she is not deemed a suitable candidate for either chemoprophylaxis or SCDs at this time. Total time: Approximately (but not less than) 75 minutes. Charges/Coding Visit Charges Inpatient E&M: 59095 Init Hosp L3
[2024-12-08] VITALS (28 sets, daily range): BP systolic 112–164; BP diastolic 66–84; PULSE 59–74; RESP 10–21; TEMP 36.2–36.8; O2SAT 94–100; BMI 27.1
[2024-12-08] MEDS: Octreotide 0.1 MG/ML ML 0.05 MG IV (00:27)
[2024-12-08] MEDS: Octreotide 0.5 MG in Dextrose 5%-Water (250mL Bag) 250 ML 12.5 MG CONT INF ×2 (00:32→19:52)
[2024-12-08] MEDS: Ondansetron 4 MG/2 ML Vial IV ×2 (00:37→05:29)
[2024-12-08] MEDS: Morphine 2 MG/ML Syringe IV ×2 (02:02→05:28)
[2024-12-08] MEDS: Multivitamins 10 ML in 0.9% Normal Saline (500mL Bag) 500 ML IV (02:02)
[2024-12-08] MEDS: KCL 40mEq in 0.9% NS 40 MEQ/1,000 ML IV.SOLN 70 MEQ IV (02:02)
[2024-12-08] MEDS: Phenobarbital Sodium 130 MG/ML Vial 100 MG IV ×3 (02:04→13:00)
[2024-12-08] MEDS: Pantoprazole Sodium 80 MG in 0.9% Normal Saline (100mL Bag) 80 ML 10 MG CONT INF ×3 (03:05→22:22)
[2024-12-08] MEDS: Piperacil/Tazobactam 3.375 GM in 0.9% Normal Saline (50mL MB+) 50 ML IV ×3 (03:05→21:04)
[2024-12-08] MEDS: 0.9% Normal Saline (100mL Bag) 100 ML 15 ML IV (03:05)
[2024-12-08 03:19] LABS: Absolute Lymphocyte Count 0.22 X10^3/uL (0.83-4.51); Absolute Neutrophil Count 1.8 X10^3/uL (2.0-7.7); Basophil# 0.01 X10^3/uL; Basophil% 0.4 % (0-1); Eosinophil# 0.04 X10^3/uL; Eosinophils% 1.8 % (0-5); Hematocrit 24.4 % (37-47); Hemoglobin 7.3 g/dL (12.0-15.0); Lymphocyte # 0.22 X10^3/ul (0.83-4.51); Lymphocyte % 9.9 % (19-41); Mean Corp Hgb Conc 29.9 g/dL (32-36); Mean Corpuscular Hgb 24.2 pg (27.0-32.0); Mean Corpuscular Volume 80.8 fL (81-99); Mean Platelet Vol. 9.3 fl (6.2-12.0); Monocyte# 0.18 X10^3/uL; Monocyte% 8.1 % (0-10); NRBC Flagged by Analyzer 0.9 % (0-5); Neutrophil # 1.76 X10^3/uL (2.7-7.7); Neutrophil % 78.9 % (47-70); POSITIVE COUNT YES; POSITIVE DIFFERENTIAL YES; RBC Distribution Width CV 17.5 % (11.6-14.6); RBC Distribution Width SD 51.2 fl (35.1-43.9); Red Blood Count 3.02 M/mm3 (4.2-5.4); White Blood Count 2.2 K/mm3 (4.4-11.0)
[2024-12-08 03:29] LABS: Differential Indicated SCAN CRITERIA MET; Platelet Count 37 K/mm3 (150-450)
[2024-12-08 03:32] LABS: Alcohol, Blood (Medical)-Serum 48.8 mg/dL (<=10.0)
[2024-12-08 03:38] LABS: ALB/GLOB Ratio 1.3 RATIO (0.9-2.4); AST(SGOT) 53 U/L (<=31); Alanine Aminotransfer ALT/SGPT 16 U/L (<=34); Albumin, Serum 3.6 g/dL (3.5-5.0); Alkaline Phosphatase 117 U/L (35-104); Anion Gap 17 (5-15); BUN 9 mg/dL (4-19); BUN/Creat Ratio 16.8 RATIO (10-20); Carbon Dioxide 17.1 mmol/L (21.0-32.0); Chloride 109 mmol/L (98-108); Creatinine, Serum 0.52 mg/dL (0.70-1.20); EST Glomerular Filtration Rate 114 (>60); Estimated Creatinine Clearance 126.97 ml/min (50-250); Globulin 2.7 g/dL (2.2-4.2); Glucose 58 mg/dL (70-99); Phosphorus 4.1 mg/dL (2.7-4.5); Potassium 3.2 mmol/L (3.3-5.1); Protein, Total 6.3 g/dL (5.9-8.4); Sodium Level 143 mmol/L (133-145); Total Bilirubin 1.29 mg/dL (0.00-1.30)
[2024-12-08 03:52] LABS: Cholesterol 181 mg/dL (<=200); High Density Lipoprotein 57 mg/dL; Low Density Lipoprotein Calc. 96 mg/dL; Triglycerides 142 mg/dL; Very Low Density Lipoprotein 28 mg/dL (5-40)
[2024-12-08 04:41] LABS: Magnesium 1.5 mg/dL (1.5-2.2); Vitamin B12 953 pg/mL (180-914)
[2024-12-08 04:42] LABS: Hemoglobin A1c 5.2 % (<=5.6)
[2024-12-08 05:12] LABS: Differential Comment SCANNED; Pathologist Review May foll; Platelet Estimate MKD DEC (ADEQ); Stomatocyte RARE
--- NOTE | 2024-12-08 06:55 | PN.HOSP_ITS ---
Subjective Subjective No further melena. Wants something to drink. Objective Data Objective Data Vital Signs: Vital Signs Temp Pulse Resp BP Pulse Ox O2 Del Method 36.4 C L 70 18 142/80 H 99 Room Air 12/08/24 04:00 12/08/24 06:00 12/08/24 06:00 12/08/24 06:00 12/08/24 06:00 12/08/24 06:00 Oxygen Delivery Method Room Air Weight: 71.6 kg Body Mass Index (BMI) 27.1 Intake & Output: Intake and Output for Last 24 Hours 12/06/24 12/07/24 12/08/24 23:59 23:59 23:59 Intake Total 693 / 693 1887 / 1887 Balance 693 / 693 1887 / 1887 Lab / Micro Data 12/08/24 07:30 12/08/24 07:30 Labs: Laboratory Results - last 24 hr 12/07/24 11:35: WBC 1.9 L, RBC 2.08 L, Hgb 4.4 L*, Hct 16.5 L, MCV 79.3 L, MCH 21.2 L, MCHC 26.7 L, RDW Std Deviation 55.9 H, RDW Coeff of Jose Alberto 19.6 H, Plt Count 39 L*, MPV 10.3, Immature Gran % (Auto) 1.600 H, Neut % (Auto) 61.8, Lymph % (Auto) 31.4, [place] % (Auto) 5.2, Eos % (Auto) 0.0, Baso % (Auto) 0.0, Absolute Neuts (auto) 1.2 L, Absolute Lymphs (auto) 0.60 L, Nucleated RBC % 0, Diff Path Review May , Platelet Estimate MKD DEC, Immature Plt Fraction 4.9, Polychromasia 1+, Anisocytosis 1+, Retic Count 4.03 H, Immature Retic Fraction 37.10 H, Retic Hgb Equivalent 18.3 L, Sodium 136, Potassium 3.3, Chloride 103, C arbon Dioxide 16.2 L, Anion Gap 17 H, BUN 11, Creatinine 0.51 L, Estim Creat Clear Calc 135.26, Est GFR (MDRD) Non-Af 115, BUN/Creatinine Ratio 21.8 H, Glucose 88, Calcium 8.3, Iron 13 L, TIBC 416, Iron Saturation 3.0 L, Unsaturated IBC 403, Ferritin 9 L, b-Hydroxybutyric mmol/L 0.4, TSH 2.580, Serum , Qual NEGATIVE, Ethyl Alcohol 324.0 H* 12/07/24 12:10: Blood Type O NEGATIVE, Antibody Screen NEGATIVE, Crossmatch See Detail 12/07/24 13:00: Urine Color Yellow, Urine Clarity Sl. Cloudy, Urine pH 6.0, Ur Specific [place] 1.020, Urine Protein 30 H, Urine Glucose (UA) Normal, Urine Ketones 5 H, Urine Occult Blood 10 H, Urine Nitrite Negative, Urine Bilirubin Negative, Urine Urobilinogen 1 H, Ur Leukocyte Esterase Negative, Urine RBC 0-5 SEEN, Urine WBC 0-5 SEEN, Ur Squamous Epith Cells 0-5 SEEN, Urine Bacteria 0 SEEN, Urine Mucus 0 SEEN, Urine Opiates Screen NEGATIVE, U Buprenorphine Qual NEGATIVE, Ur Oxycodone Screen NEGATIVE, Urine Methadone Screen NEGATIVE, Urine Fentanyl Screen NEGATIVE, Ur Barbiturates Screen NEGATIVE, Ur Phencyclidine Scrn NEGATIVE, Ur Amphetamines Screen NEGATIVE, U Benzodiazepines Scrn NEGATIVE, Urine Cocaine Screen NEGATIVE, U Cannabinoids Screen NEGATIVE 12/07/24 17:32: PT 15.6 H, INR 1.2, APTT 33.5, Total Bilirubin 1.03, Direct Bilirubin 0.62 H, AST 42 H, ALT 14, Alkaline Phosphatase 111 H, Total Protein 6.0, Albumin 3.4 L, Globulin 2.6 12/07/24 19:55: POC Glucose 86 12/08/24 02:55: WBC 2.2 L, RBC 3.02 L, Hgb 7.3 L, Hct 24.4 L, MCV 80.8 L, MCH 24.2 L, MCHC 29.9 L D, RDW Std Deviation 51.2 H, RDW Coeff of Jose Alberto 17.5 H, Plt Count 37 L*, MPV 9.3, Immature Gran % (Auto) 0.900, Neut % (Auto) 78.9 H, Lymph % (Auto) 9.9 L, [place] % (Auto) 8.1, Eos % (Auto) 1.8, Baso % (Auto) 0.4, Absolute Neuts (auto) 1.8 L, Absolute Lymphs (auto) 0.22 L, Nucleated RBC % 0.9, Differential Comment SCANNED, Diff Path Review May foll, Platelet Estimate MKD DEC, Stomatocytes RARE, Sodium 143, Potassium 3.2 L, Chloride 109 H, Carbon Dioxide 17.1 L, Anion Gap 17 H, BUN 9, Creatinine 0.52 L, Estim Creat Clear Calc 126.97, Est GFR (MDRD) Non-Af 114, BUN/Creatinine Ratio 16.8, Glucose 58 L, H emoglobin A1c 5.2 L, Calcium 8.0, Phosphorus 4.1, Magnesium 1.5, Total Bilirubin 1.29, AST 53 H, ALT 16, Alkaline Phosphatase 117 H, Total Protein 6.3, Albumin 3.6, Globulin 2.7, Albumin/Globulin Ratio 1.3, Triglycerides 142, Cholesterol 181, LDL Cholesterol, Calc 96, VLDL Cholesterol 28, HDL Cholesterol 57, Cholesterol/HDL Ratio 3.20, Vitamin B12 953 H, Serum Folate 34.90 H, TSH 3.670 12/08/24 02:55: TSH 3.710, Ethyl Alcohol 48.8 H Micro: Microbiology 12/07/24 15:19 Stool Stool Occult Blood (YUE) - Final Occult Blood Positive ABG Data ABG results: ABG 12/07/24 13:51 Specimen Type CRISTÓBAL Sample Site Not entered VBG pH 7.45 H VBG pO2 75 H VBG HCO3 18 L VBG Total CO2 18 L VBG O2 Sat (Calc) 96 H VBG Base Excess -6 L POC Mix VBG pCO2 Pt Tmp 25.3 L O2 Delivery Device Not entered Radiography Diagnostic Testing: Radiology Impression Chest/Abdomen/Pelvis CTA 12/07/24 14:46 IMPRESSION: Findings worrisome for portal hypertension. Thrombosis is present within the superior mesenteric, inferior mesenteric vein and potentially the splenic vein. Large splenorenal shunt is present, all indicative of portal hypertension. Small perihepatic ascites is seen. Heterogeneous appearance of the liver. Given suspicion of portal hypertension, GI consultation and cirrhosis be ruled out. Thickening of the gastroesophageal junction. Correlate clinically for reflux disease. No evidence of abnormal collection seen within the chest, abdomen and pelvis. One or more dose reduction techniques were used (e.g., Automated exposure control, adjustment of the mA and/or kV according to patient size, use of iterative reconstruction technique). Reading Location: [id number] Physical Exam Const alert and no apparent distress HEENT head/scalp atraumatic and moist oral mucous membranes Resp normal respiratory effort, no retractions, no use of accessory muscles and clear to auscultation bilaterally Cardio regular rate, regular rhythm, S1 normal heart sound and S2 normal heart sound GI normal to inspection, nondistended, normoactive bowel sounds, soft to palpation and non-distended Palpation: tender Extremity normal to inspection Assessment & Plan Assessment/Plan (1) ABLA (acute blood loss anemia): PLAN: Hg down to 4.4. Transfused 4 units PRBCs, up to 7.3, and recheck shows hg of 7.5 in pt that is pancytopenic Check labs. on octreotide and pantoprazole gtts. GI on consult. DARRON Gonzalez Friend, since no further melena, no imminent plans for endoscopy. Ok for clear diet. (2) Superior mesenteric vein thrombosis: PLAN: Along with inferior mesenteric venin and possible splenic vein thrombosis No anticoagulation at this time given GI bleed and anemia. (3) Acute alcohol intoxication: QUALIFIERS: Complication of substance-induced condition: with unspecified complication Qualified Code(s): F10.929 - Alcohol use, unspecified with intoxication, unspecified PLAN: On phenobarbital IV, change to PO taper. Thiamine and folate. PLAN: Plan Alcoholic cirrhosis. poor prognosis. MELD 10. Child-Hackett: B VTE prophylaxis: not indicated given anemia and thrombocytopenia. Charges/Coding Visit Charges Inpatient E&M: 98319 Subs Hosp L2
[2024-12-08 07:37] LABS: Absolute Lymphocyte Count 0.24 X10^3/uL (0.83-4.51); Absolute Neutrophil Count 2.5 X10^3/uL (2.0-7.7); Basophil# 0.01 X10^3/uL; Basophil% 0.3 % (0-1); Eosinophil# 0.02 X10^3/uL; Eosinophils% 0.7 % (0-5); Hematocrit 24.4 % (37-47); Hemoglobin 7.5 g/dL (12.0-15.0); Lymphocyte # 0.24 X10^3/ul (0.83-4.51); Mean Corp Hgb Conc 30.7 g/dL (32-36); Mean Corpuscular Hgb 24.8 pg (27.0-32.0); Mean Corpuscular Volume 80.5 fL (81-99); Monocyte# 0.25 X10^3/uL; Monocyte% 8.3 % (0-10); NRBC Flagged by Analyzer 0.7 % (0-5); Neutrophil # 2.46 X10^3/uL (2.7-7.7); Neutrophil % 81.7 % (47-70); POSITIVE COUNT YES; POSITIVE DIFFERENTIAL YES; Platelet Count 37 K/mm3 (150-450); RBC Distribution Width CV 17.6 % (11.6-14.6); RBC Distribution Width SD 50.5 fl (35.1-43.9); Red Blood Count 3.03 M/mm3 (4.2-5.4)
[2024-12-08 07:41] LABS: Differential Indicated SCAN CRITERIA MET
[2024-12-08 08:04] LABS: ALB/GLOB Ratio 1.3 RATIO (0.9-2.4); AST(SGOT) 58 U/L (<=31); Alanine Aminotransfer ALT/SGPT 16 U/L (<=34); Albumin, Serum 3.5 g/dL (3.5-5.0); Alkaline Phosphatase 115 U/L (35-104); Anion Gap 13 (5-15); BUN 8 mg/dL (4-19); BUN/Creat Ratio 15.6 RATIO (10-20); Carbon Dioxide 19.3 mmol/L (21.0-32.0); Chloride 109 mmol/L (98-108); Creatinine, Serum 0.54 mg/dL (0.70-1.20); EST Glomerular Filtration Rate 113 (>60); Estimated Creatinine Clearance 122.27 ml/min (50-250); Globulin 2.7 g/dL (2.2-4.2); Glucose 103 mg/dL (70-99); Potassium 3.7 mmol/L (3.3-5.1); Protein, Total 6.2 g/dL (5.9-8.4); Sodium Level 142 mmol/L (133-145); Total Bilirubin 1.39 mg/dL (0.00-1.30)
[2024-12-08 08:05] LABS: Hypochromasia RARE; Platelet Estimate MKD DEC (ADEQ); Polychromasia RARE
[2024-12-08] MEDS: proCHLORPERazine 10 MG/2 ML Vial 5 MG IV (08:38)
--- NOTE | 2024-12-08 11:00 | ADDICTION ---
clinician met with patient. she presented awake and alert. she engaged well in discussion. she reported that she has had a little AoD tx previously. Client presented as contemplative and somewhat ambivalent about change. clinician discussed tx options once she is discharged from nursing facility post ICU; briefly reviewed different LOC's. clinician left business cards for client. client reported no concerns or questions.
[2024-12-08] MEDS: Acetaminophen 325 MG Tablet 650 MG PO (17:10)
[2024-12-08] MEDS: Phenobarbital 32.4 MG Tablet 97.2 MG PO ×2 (17:15→21:03)
[2024-12-09] VITALS (14 sets, daily range): BP systolic 126–146; BP diastolic 63–86; PULSE 59–77; RESP 12–18; TEMP 36.4–36.6; O2SAT 94–98; BMI 27.4
[2024-12-09] MEDS: Phenobarbital 32.4 MG Tablet 97.2 MG PO ×4 (01:15→13:01)
[2024-12-09 03:59] LABS: Absolute Lymphocyte Count 0.46 X10^3/uL (0.83-4.51); Absolute Neutrophil Count 1.7 X10^3/uL (2.0-7.7); Basophil# 0.02 X10^3/uL; Basophil% 0.8 % (0-1); Eosinophil# 0.08 X10^3/uL; Eosinophils% 3.1 % (0-5); Hematocrit 24.7 % (37-47); Hemoglobin 7.5 g/dL (12.0-15.0); Lymphocyte # 0.46 X10^3/ul (0.83-4.51); Mean Corp Hgb Conc 30.4 g/dL (32-36); Mean Corpuscular Hgb 24.4 pg (27.0-32.0); Mean Corpuscular Volume 80.2 fL (81-99); Mean Platelet Vol. 10.4 fl (6.2-12.0); Monocyte# 0.28 X10^3/uL; NRBC Flagged by Analyzer 0.8 % (0-5); Neutrophil % 66.7 % (47-70); POSITIVE COUNT YES; POSITIVE DIFFERENTIAL YES; RBC Distribution Width CV 18.1 % (11.6-14.6); RBC Distribution Width SD 52.9 fl (35.1-43.9); Red Blood Count 3.08 M/mm3 (4.2-5.4); White Blood Count 2.6 K/mm3 (4.4-11.0)
[2024-12-09 04:03] LABS: Differential Indicated SCAN CRITERIA MET; Platelet Count 41 K/mm3 (150-450)
[2024-12-09 04:45] LABS: Anion Gap 12 (5-15); BUN 9 mg/dL (4-19); BUN/Creat Ratio 14.9 RATIO (10-20); Calcium,Total 8.1 mg/dL (7.6-11.0); Carbon Dioxide 22.4 mmol/L (21.0-32.0); Chloride 98 mmol/L (98-108); Creatinine, Serum 0.59 mg/dL (0.70-1.20); EST Glomerular Filtration Rate 110 (>60); Estimated Creatinine Clearance 111.91 ml/min (50-250); Glucose 126 mg/dL (70-99); Potassium 3.7 mmol/L (3.3-5.1); Sodium Level 132 mmol/L (133-145)
[2024-12-09 05:10] LABS: Anisocytosis 2+; Differential Comment SCANNED; Hypochromasia 1+; Platelet Estimate MKD DEC (ADEQ); Polychromasia 1+
[2024-12-09 05:11] LABS: Microcytosis 1+; Ovalocyte 1+; Pathologist Review May foll; Schistocytes RARE; Target Cells RARE
[2024-12-09] MEDS: Piperacil/Tazobactam 3.375 GM in 0.9% Normal Saline (50mL MB+) 50 ML IV ×2 (05:16→13:00)
--- NOTE | 2024-12-09 07:04 | PCM.PN.HOSP ---
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 No melena. No abdominal pain. Tolerating clear diet. Objective Data Objective Data Vital Signs: Vital Signs Temp Pulse Resp BP Pulse Ox O2 Del Method 36.4 C L 61 14 145/74 H 94 Room Air 12/09/24 05:00 12/09/24 06:00 12/09/24 06:00 12/09/24 06:00 12/09/24 06:00 12/09/24 06:00 Oxygen Delivery Method Room Air Weight: 72.5 kg Body Mass Index (BMI) 27.4 Intake & Output: Intake and Output for Last 24 Hours 12/07/24 12/08/24 12/09/24 23:59 23:59 23:59 Intake Total 693 / 693 4182.50 / 4182.50 50 / 50 Output Total 1100 / 1100 Balance 693 / 693 3082.50 / 3082.50 50 / 50 Lab / Micro Data 12/09/24 03:34 12/09/24 03:34 Labs: Laboratory Results - last 24 hr 12/08/24 07:30: WBC 3.0 L, RBC 3.03 L, Hgb 7.5 L, Hct 24.4 L, MCV 80.5 L, MCH 24.8 L, MCHC 30.7 L, RDW Std Deviation 50.5 H, RDW Coeff of Jose Alberto 17.6 H, Plt Count 37 L*, Immature Gran % (Auto) 1.000 H, Neut % (Auto) 81.7 H, Lymph % (Auto) 8.0 L, [place] % (Auto) 8.3, Eos % (Auto) 0.7, Baso % (Auto) 0.3, Absolute Neuts (auto) 2.5, Absolute Lymphs (auto) 0.24 L, Nucleated RBC % 0.7, Platelet Estimate MKD DEC, Polychromasia RARE, Hypochromasia RARE, Sodium 142, Potassium 3.7, Chloride 109 H, Carbon Dioxide 19.3 L, Anion Gap 13, BUN 8, Creatinine 0.54 L, Estim Creat Clear Calc 122.27, Est GFR (MDRD) Non-Af 113, BUN/Creatinine Ratio 15.6, Glucose 103 H, Calcium 8.0, Total Bilirubin 1.39 H, AST 58 H, ALT 16, Alkaline Phosphatase 115 H, Total Protein 6.2, Albumin 3.5, Globulin 2.7, Albumin/Globulin Ratio 1.3 12/09/24 03:34: WBC 2.6 L, RBC 3.08 L, Hgb 7.5 L, Hct 24.7 L, MCV 80.2 L, MCH 24.4 L, MCHC 30.4 L, RDW Std Deviation 52.9 H, RDW Coeff of Jose Alberto 18.1 H, Plt Count 41 L*, MPV 10.4, Immature Gran % (Auto) 0.400, Neut % (Auto) 66.7, Lymph % (Auto) 18.0 L, [place] % (Auto) 11.0 H, Eos % (Auto) 3.1, Baso % (Auto) 0.8, Absolute Neuts (auto) 1.7 L, Absolute Lymphs (auto) 0.46 L, Nucleated RBC % 0.8, Differential Comment SCANNED, Diff Path Review January, Platelet Estimate MKD DEC, Polychromasia 1+, Hypochromasia 1+, Anisocytosis 2+, Microcytosis 1+, Target Cells RARE, Ovalocytes 1+, Schistocytes RARE, Sodium 132 L, Potassium 3.7, Chloride 98, Carbon Dioxide 22.4, Anion Gap 12, BUN 9, Creatinine 0.59 L, Estim Creat Clear Calc 111.91, Est GFR (MDRD) Non-Af 110, BUN/Creatinine Ratio 14.9, Glucose 126 H, Calcium 8.1 Micro: Microbiology 12/07/24 15:19 Stool Stool Occult Blood (YUE) - Final Occult Blood Positive Physical Exam Const alert and no apparent distress HEENT head/scalp atraumatic and moist oral mucous membranes Resp normal respiratory effort, no retractions, no use of accessory muscles and clear to auscultation bilaterally Cardio regular rate, regular rhythm, S1 normal heart sound and S2 normal heart sound GI normal to inspection, nondistended, normoactive bowel sounds, soft to palpation, non-tender and non-distended Assessment & Plan Assessment/Plan (1) ABLA (acute blood loss anemia): PLAN: Hg down to 4.4. Transfused 4 units PRBCs, up to 7.3, and recheck shows hg of 7.5, currently stable. in pt that is pancytopenic on octreotide and pantoprazole gtts. GI on consult. DW Friend, since no further melena, no imminent plans for endoscopy. Ok for clear diet. (2) Superior mesenteric vein thrombosis: PLAN: Along with inferior mesenteric venin and possible splenic vein thromboses No anticoagulation at this time given GI bleed and anemia. (3) Acute alcohol intoxication: QUALIFIERS: Complication of substance-induced condition: with unspecified complication Qualified Code(s): F10.929 - Alcohol use, unspecified with intoxication, unspecified PLAN: On phenobarbital PO taper Thiamine and folate. PLAN: Plan Alcoholic cirrhosis. poor prognosis. MELD 10. Child-Hackett: B VTE prophylaxis: add SCDs Disposition: pending transfer to [facility]. The same hospital where she had previous intervention. Charges/Coding Visit Charges Inpatient E&M: 57826 Subs Hosp L2
[2024-12-09] MEDS: Gabapentin 300 MG Capsule PO (07:58)
[2024-12-09] MEDS: Pantoprazole Sodium 80 MG in 0.9% Normal Saline (100mL Bag) 80 ML 10 MG CONT INF (07:58)
[2024-12-09] MEDS: Folic Acid 1 MG Tablet PO (08:00)
[2024-12-09] MEDS: Thiamine Hydrochloride 100 MG Tablet PO (08:00)
--- NOTE | 2024-12-09 10:46 | CASEMGMT ---
Social Work Pt admitted with no insurance. Pt has been seen by Traci with [facility] and Medicaid application has been submitted to [facility] J[facility]. TIM met with pt and provided additional resources for [facility] including [facility] program. pt appreciative of information and denies any further needs at this time. Pt awaiting tertiary transfer to [place]. JOHANN Whiting
[2024-12-09] MEDS: hydrOXYzine PAM 25 MG Capsule 50 MG PO (11:05)
--- NOTE | 2024-12-09 13:45 | NURSING ---
Patient called this RN to her room and requested to leave at this time. Patient is oriented x3 and ambulating in the room independently, without difficulty. Dr Riggins notified of patient's request to leave. Dr Riggins discussed the risks of leaving the hospital AMA and that he felt it was in the patient's best interest to stay under observation until she can be transferred to [place]. Patient verbalized that she understood but would still like to leave now. AMA paper was signed, patients IV's were removed and pvc monitor removed, and personal belongings unlocked. Patient dressed self and walked out.
--- NOTE | 2024-12-09 13:58 | PCM.DC.SUM ---
Providers Date of Admission: 12/08/24 Primary Care Physician: Lady Primary Care Phys Consultations 12/08/24 01:04 Consult: Gastroenterology Routine Consulting Provider: [facility] Reason for Consult: Severe anemia, acute EtOH intoxication and chronic EtOH abuse EMERGENT Consult: No MD Notified: Yes Date Notified: 12/08/24 Time Notified: 00:31 Method of Notification: ED Physician Initiated Reason For Visit: CRITICAL ANEMIA WITH HEMOGLOBIN OF 4.4 POA & ACUTE Diagnosis Discharge Diagnosis (1) ABLA (acute blood loss anemia): Status: Acute Code(s): D62 - Acute posthemorrhagic anemia Plan: Hg down to 4.4. Transfused 4 units PRBCs, up to 7.3, and recheck shows hg of 7.5, currently stable. in pt that is pancytopenic on octreotide and pantoprazole gtts. GI on consult. DARRON Easton, since no further melena, no imminent plans for endoscopy. Ok for clear diet. (2) Superior mesenteric vein thrombosis: Status: Acute Code(s): K55.069 - Acute infarction of intestine, part and extent unspecified Plan: Along with inferior mesenteric venin and possible splenic vein thromboses No anticoagulation at this time given GI bleed and anemia. (3) Acute alcohol intoxication: Status: Acute Code(s): F10.929 - Alcohol use, unspecified with intoxication, unspecified Qualifiers: Complication of substance-induced condition: with unspecified complication Qualified Code(s): F10.929 - Alcohol use, unspecified with intoxication, unspecified Plan: On phenobarbital PO taper Thiamine and folate. Plan Alcoholic cirrhosis. poor prognosis. MELD 10. Child-Hackett: B VTE prophylaxis: add SCDs Disposition: pending transfer to [facility]. The same hospital where she had previous intervention. Medications at Discharge Home Medications pediatric multivitamin no.136 (Children Multivitamin chewable tablet) 2 tab PO DAILY 12/07/24 pantoprazole 40 mg tablet,delayed release 40 mg PO BID #60 tabs 12/09/24 Hospital Course Operations None Procedures None Summary of Care Provided Minutes Spent on Discharge: 35 Hospital Course: Patient presents with acute loss anemia with a hemoglobin of 4.4. Patient was transfused 4 units of packed red blood cells and hemoglobin has been stable at 7.5. Patient underwent a CTA of the abdomen pelvis that showed findings were simple portal hypertension, thrombosis within the superior mesenteric, inferior mesenteric and potentially the splenic vein. Large splenorenal shunt present. Given the patient's history, the recommendation was made to transfer the patient to [facility]. Patient was excepted but had not been readily transferred over there as no beds were available. Said plan was to keep the patient here until a bed opened up over at [facility]. Patient remained stable and her diet was advanced. Patient today said that she needed to leave but did not specify reason why. Patient was told that the risks of leaving including further bleeding and even . She expressed understanding and this was discussed with her nurse present at bedside. Though the patient is leaving AMA I will send her prescription for pantoprazole 40 mg twice daily. Patient states that she is going to follow-up at [facility] tomorrow morning. Once again she did not specify an indication why she would just be waiting until tomorrow rather than going straight today. Though the patient was expressing earlier desire to smoke it is unclear if that is indication why she is wanting to leave AGAINST MEDICAL ADVICE or some other reasons but she is not volunteering any of that. Weight / BMI Weight Weight: 72.5 kg Body Mass Index (BMI) 27.4 ABG / Lab / Microbiology Data 12/09/24 03:34 12/09/24 03:34 Laboratory: Laboratory Results - last 24 hr 12/09/24 03:34: WBC 2.6 L, RBC 3.08 L, Hgb 7.5 L, Hct 24.7 L, MCV 80.2 L, MCH 24.4 L, MCHC 30.4 L, RDW Std Deviation 52.9 H, RDW Coeff of Jose Alberto 18.1 H, Plt Count 41 L*, MPV 10.4, Immature Gran % (Auto) 0.400, Neut % (Auto) 66.7, Lymph % (Auto) 18.0 L, [place] % (Auto) 11.0 H, Eos % (Auto) 3.1, Baso % (Auto) 0.8, Absolute Neuts (auto) 1.7 L, Absolute Lymphs (auto) 0.46 L, Nucleated RBC % 0.8, Differential Comment SCANNED, Diff Path Review January, Platelet Estimate MKD DEC, Polychromasia 1+, Hypochromasia 1+, Anisocytosis 2+, Microcytosis 1+, Target Cells RARE, Ovalocytes 1+, Schistocytes RARE, Sodium 132 L, Potassium 3.7, Chloride 98, Carbon Dioxide 22.4, Anion Gap 12, BUN 9, Creatinine 0.59 L, Estim Creat Clear Calc 111.91, Est GFR (MDRD) Non-Af 110, BUN/Creatinine Ratio 14.9, Glucose 126 H, Calcium 8.1 Microbiology: Microbiology 12/07/24 15:19 Stool Stool Occult Blood (YUE) - Final Occult Blood Positive D/C Instructions Discharge Diet: - (Izard diet.) DC O2, CPAP, BIPAP Needs Home O2 Discharge instructions: No Meaningful Use Info Meaningful Use Meaningful Use Diagnoses (Choose all that apply): None applicable Ischemic Stroke Statin Dosing Therapy Reference: STATIN DOSE THERAPY REFERENCE: * Patients > 75 years receive moderate or high dose statin therapy. * Patients 75 years or YOUNGER should receive HIGH intensity statin dose unless contraindicated. You will be required to document reason for non-treatment if statin daily dose does not meet guidelines. HIGH DOSE STATIN THERAPY DAILY Atorvastatin > than or = to 40 mg Rosuvastatin > than or = to 20 mg Amlodipine + Atorvastatin > than or = to 2.5/40 mg Ezetimibe + Simvastatin 10/80 mg Simvastatin 80mg Discharge Plan Admission Admit Date/Time: 12/08/24 00:27 Primary Reason for Your Visit: Anemia Attending Provider: Raffi Riggins Primary Care Provider: Juan Antonio Olivas,Lady Primary Consulting Providers: Philip Deras Discharge Orders/Prescriptions Prescriptions: New pantoprazole 40 mg tablet,delayed release (DR/EC) 40 mg PO BID Qty: 60 0RF Continued Children Multivitamin Tablet,Chewable 2 tab PO DAILY Discontinued Water Pill tablet 3 tab PO DAILY Rx Instructions: OTC WATER PILL : CALCIUM 132MG, POTASSIUM 101MG, HYDRANGEA ROOT 65MG, CORNSILK 65MG Referrals / Follow Up: Care Physician,No Primary [Primary Care Provider] - NOT,DEFINED [Non-Staff] - Disposition Disposition (needs filled in before D/C Order can be placed): Against Medical Advice Charges/Coding Visit Charges Inpatient E&M: 17254 Disch Hosp >30min
== END 2024-12-09 13:57 | disposition left against medical advice (07) | DRG 811 ==
LOC: ED 21:07 → ICU 12-08 01:37
PROVIDERS: Emergency Medicine; Internal Medicine; Admitting Provider Internal Medicine; Emergency Provider Emergency Medicine
DX: D62 Acute posthemorrhagic anemia (principal); K55.069 Acute infarction of intestine, part and extent unspecified; I82.890 Acute embolism and thrombosis of other specified veins; K76.6 Portal hypertension; I82.891 Chronic embolism and thrombosis of other specified veins; K70.31 Alcoholic cirrhosis of liver with ascites; D61.818 Other pancytopenia; D50.9 Iron deficiency anemia, unspecified; F10.129 Alcohol abuse with intoxication, unspecified; F17.210 Nicotine dependence, cigarettes, uncomplicated; Y90.8 Blood alcohol level of 240 mg/100 ml or more
CPT/HCPCS: 36415; 71275; 74174; 80048; 80053; 80061; 80076; 80307; 81001; 82010; 82077; 82274; 82607; 82728; 82746; 82803; 82962; 83036; 83540; 83550; 83735; 84100; 84443; 84703; 85025; 85045; 85610; 85730; 86644; 86850; 86900; 86901; 86965; 93005; 94762; 99285; 99406; P9016; P9035; Q9967; A4216; J2354; J2405

== ENCOUNTER 2024-12-09 16:40 | Inpatient (IN) | payer SELFPAY ==
[2024-12-09 16:41] VITALS: BP 141/85; PULSE 96; RESP 16; TEMP 37.2; O2SAT 98; BMI 26.1
--- NOTE | 2024-12-09 18:19 | EDS_ITS ---
HPI History of Present Illness Chief Complaint: Other, Pain/Inj Informant: patient Narrative Narrative: Patient returns to ED after leaving AMA from the ICU 3 hours ago. She was admitted for pancytopenia anemia with GI bleed. History of alcoholic cirrhosis. She was given total 3 units of blood and platelets were given on her initial hospitalization. She states she left because she thought she is feeling better. She left the hospital she states she walked out felt short of breath. She had her same upper back pain that she is seen for. She states she tried going back up to the ICU however they reported she needed to go to the emergency room. She returns to the ED. She has had no bloody stools no abdominal pain. Review of records she had CT scan chest abdomen pelvis from reported from discussion from transfer center chronic venous thrombosis superior mesenteric inferior mesenteric and splenic veins. Her hemoglobin 7.5 today. She had a 4.4 hemoglobin on her hospitalization. She had her upper back pain in the ER was treated with low-dose morphine. She has been receiving phenobarbital for alcohol history. PFSH [facility] Home Medications ?Medication ?Instructions ?Recorded ?Last Taken ?Type pediatric multivitamin no.136 2 tab PO DAILY 12/07/24 12/06/24 History (Children Multivitamin chewable tablet) pantoprazole 40 mg tablet,delayed 40 mg PO BID #60 tab s 12/09/24 Unknown Rx release Allergy/AdvReac Type Severity Reaction Status Date / Time latex Allergy Intermediate Rash Verified 12/09/24 16:41 Social History Smoking Status: Current every day smoker tobacco type: cigarettes ROS ROS ED Constitutional Constitutional ED: Denies chills, fever(s) or sweats ENT ENT ED: Denies sore throat Cardiovascular Cardiovascular: Denies chest pain, leg edema, palpitations or racing heartbeat Respiratory/Chest Respiratory/Chest: Denies cough, dyspnea or dyspnea on exertion Gastrointestinal Gastrointestinal: Denies abdominal pain, diarrhea, nausea or vomiting Genitourinary Genitourinary ED: Denies dysuria, hematuria or urinary frequency Musculoskeletal Musculoskeletal: Reports back pain; Denies extremity pain or neck pain Integumentary Denies rash or wounds Neurologic Neurologic: Denies headache(s), paresthesias or weakness EXAM Physical Exam Const Vital Signs: 12/09/24 16:41 Temperature 99.0 F Temperature Source Oral Pulse Rate 96 Respiratory Rate 16 Blood Pressure 141/85 H Blood Pressure Mean 103 Pulse Ox 98 Oxygen Delivery Method Room Air Positive well nourished and well developed General Appearance ED: well developed, NAD and pallor HEENT Reports moist mucous membranes normocephalic and atraumatic Eyes General Eye ED: Yes pale conjunctiva Neck full ROM Chest Wall Chest: Negative for tenderness Resp normal respiratory effort and normal air movement Effort and Inspection: symmetric chest movement; Negative for respiratory distress Cardio regular rate, regular rhythm and no murmurs Peripheral Pulses: pulses 2+ throughout GI normal to inspection, nondistended, normoactive bowel sounds and non-tender Palpation: Negative for guarding or rebound tenderness present Extremity normal to inspection General Extremety ED: Negative for edema or tenderness General Extremity: Negative for edema Neuro oriented x3 and no sensory deficits noted Sensorium / Orientation: awake and alert Skin General Skin Exam: pallor MDM MDM MDM Narrative Medical decision making narrative: Interventions / MDM: Differential diagnosis: Diagnosis considered but do not suspect: N/A My EKG interpretation: N/A Imaging independently reviewed and interpreted by myself: N/A External documents reviewed: N/A Test considered but not ordered:N/A ED course: Vital signs stable nontoxic. Patient left AMA, she was waiting for bed at [facility]. IV established recheck labs alcohol level and toxicology screen. Suspect opioids with morphine given previously along with barbiturates with her receiving phenobarbital. Give her low-dose morphine 2 mg for upper back pain. Nursing will reach out to your flight transfer instability for discussion as she did have guaiac positive stools and anemia. There is no plan emergent intervention by GI while in the hospital. From notes she was receiving octreotide and pantoprazole drips. Re-evaluation: stable Disposition discussed with patient/family/significant other: Case discussed with consulting clinician: N/A This note was generated with [employer] dictation software. It may contain incorrect words, spelling, and punctuation that were not noted in checking the note before signing. Discharge Plan Triage Chief Complaint: Other, Pain/Inj Other Complaint: Shortness of Breath ED Provider: Gonsalo Pop Dx/Rx/DC Orders Prescriptions: No Action Children Multivitamin Tablet,Chewable 2 tab PO DAILY pantoprazole 40 mg tablet,delayed release (DR/EC) 40 mg PO BID Qty: 60 0RF Primary Care Provider: Care Physician,No Primary Referrals: Care Physician,No Primary [Primary Care Provider] - Print Language: Maori
--- NOTE | 2024-12-09 18:19 | ED.VIS.DYS ---
HPI History of Present Illness Chief Complaint: Other, Pain/Inj Informant: patient Narrative Narrative: Patient returns to ED after leaving AMA from the ICU 3 hours ago. She was admitted for pancytopenia anemia with GI bleed. History of alcoholic cirrhosis. She was given total 3 units of blood and platelets were given on her initial hospitalization. She states she left because she thought she is feeling better. She left the hospital she states she walked out felt short of breath. She had her same upper back pain that she is seen for. She states she tried going back up to the ICU however they reported she needed to go to the emergency room. She returns to the ED. She has had no bloody stools no abdominal pain. Review of records she had CT scan chest abdomen pelvis from no reported from discussion from transfer center chronic venous thrombosis superior mesenteric inferior mesenteric and splenic veins. Her hemoglobin 7.5 today. She had a 4.4 hemoglobin on her hospitalization. She had her upper back pain in the ER was treated with low-dose morphine. She has been receiving phenobarbital for alcohol history. PFSH [facility] Home Medications ?Medication ?Instructions ?Recorded ?Last Taken ?Type omeprazole 20 mg tablet,delayed 40 mg PO DAILY ask pcp 12/09/24 Unknown History release pediatric multivit no.17-ferrous 2 tab PO DAILY ask pcp 12/09/24 Unknown History fumarate 15 mg iron chewable tablet Allergy/AdvReac Type Severity Reaction Status Date / Time latex Allergy Intermediate Rash Verified 12/09/24 21:35 Social History Smoking Status: Current every day smoker tobacco type: cigarettes ROS ROS ED Constitutional Constitutional ED: Denies chills, fever(s) or sweats ENT ENT ED: Denies sore throat Cardiovascular Cardiovascular: Denies chest pain, leg edema, palpitations or racing heartbeat Respiratory/Chest Respiratory/Chest: Denies cough, dyspnea or dyspnea on exertion Gastrointestinal Gastrointestinal: Denies abdominal pain, diarrhea, nausea or vomiting Genitourinary Genitourinary ED: Denies dysuria, hematuria or urinary frequency Musculoskeletal Musculoskeletal: Reports back pain; Denies extremity pain or neck pain Integumentary Denies rash or wounds Neurologic Neurologic: Denies headache(s), paresthesias or weakness EXAM Physical Exam Const Vital Signs: 12/09/24 16:41 12/09/24 18:29 12/09/24 18:40 Temperature 99.0 F Temperature Source Oral Pulse Rate 96 107 H Respiratory Rate 16 Respiratory Effort Normal Respiratory Depth Normal Respiratory Pattern Normal Blood Pressure 141/85 H 148/92 H Blood Pressure Mean 103 110 Pulse Ox 98 Oxygen Delivery Method Room Air Positive well nourished and well developed General Appearance ED: well developed, NAD and pallor HEENT Reports moist mucous membranes normocephalic and atraumatic Eyes General Eye ED: Yes pale conjunctiva Neck full ROM Chest Wall Chest: Negative for tenderness Resp normal respiratory effort and normal air movement Effort and Inspection: symmetric chest movement; Negative for respiratory distress Cardio regular rate, regular rhythm and no murmurs Peripheral Pulses: pulses 2+ throughout GI normal to inspection, nondistended, normoactive bowel sounds and non-tender Palpation: Negative for guarding or rebound tenderness present Extremity normal to inspection General Extremety ED: Negative for edema or tenderness General Extremity: Negative for edema Neuro oriented x3 and no sensory deficits noted Sensorium / Orientation: awake and alert Skin General Skin Exam: pallor MDM MDM MDM Narrative Medical decision making narrative: Interventions / MDM: Differential diagnosis: Pancytopenia, alcoholic cirrhosis, history of varices, GI bleed, chronic vein thrombosis superior mesenteric and inferior mesenteric and splenic veins. Diagnosis considered but do not suspect: N/A My EKG interpretation: N/A Imaging independently reviewed and interpreted by myself: N/A External documents reviewed: N/A Test considered but not ordered:N/A ED course: Vital signs stable nontoxic. Patient left AMA, she was waiting for bed at [place]. IV established recheck labs alcohol level and toxicology screen. Suspect opioids with morphine given previously along with barbiturates with her receiving phenobarbital. Give her low-dose morphine 2 mg for upper back pain. Nursing will reach out to your flight transfer instability for discussion as she did have guaiac positive stools and anemia. There is no plan emergent intervention by GI while in the hospital. From notes she was receiving octreotide and pantoprazole drips. 1900: Hemoglobin 8.4 white count 4.3 platelets 53. Sodium 132. Creatinine 0.76. I did discuss with transfer at [facility], patient is placed back in line for transfer. Patient accepted to Dr. Iglesias. Reported there will be no beds tonight. I will speak with hospitalist for admission pending transfer. I spoke with Dr. Solis for admission pending bed availability from transferring facility. Will restart octreotide and Protonix drip. Re-evaluation: stable Disposition discussed with patient/family/significant other: Patient Case discussed with consulting clinician: [facility] This note was generated with [employer] dictation software. It may contain incorrect words, spelling, and punctuation that were not noted in checking the note before signing. Lab Data Attestation: I reviewed the patient's lab results. Labs: Laboratory Results - last 24 hr 12/09/24 18:25 WBC 4.3 L RBC 3.49 L Hgb 8.4 L Hct 27.8 L MCV 79.7 L MCH 24.1 L MCHC 30.2 L RDW Std Deviation 52.2 H RDW Coeff of Jose Alberto 18.5 H Plt Count 53 L MPV 11.0 Immature Gran % (Auto) 0.700 Neut % (Auto) 71.9 H Lymph % (Auto) 15.7 L [place] % (Auto) 9.2 Eos % (Auto) 1.6 Baso % (Auto) 0.9 Absolute Neuts (auto) 3.1 Absolute Lymphs (auto) 0.68 L Nucleated RBC % 0.5 Sodium 132 L Potassium 3.3 Chloride 97 L Carbon Dioxide 20.2 L Anion Gap 15 BUN 8 Creatinine 0.76 Estim Creat Clear Calc 85.38 Est GFR (MDRD) Non-Af 97 BUN/Creatinine Ratio 10.6 Glucose 114 H Calcium 9.0 Magnesium 1.4 L Ethyl Alcohol < 10.1 Discharge Plan Dx/Rx/DC Orders Clinical Impression: Pancytopenia, Chronic alcohol abuse, Anemia, Alcoholic cirrhosis, GI bleed, Superior mesenteric vein thrombosis, Inferior mesenteric vein thrombosis, Chronic thrombosis of splenic vein Disposition Disposition: Acute Care Hospital [facility] Discharge Date/Time: 12/09/24 21:02
[2024-12-09] MEDS: Morphine 2 MG/ML Syringe IV (18:31)
[2024-12-09 18:38] LABS: Absolute Lymphocyte Count 0.68 X10^3/uL (0.83-4.51); Absolute Neutrophil Count 3.1 X10^3/uL (2.0-7.7); Basophil# 0.04 X10^3/uL; Basophil% 0.9 % (0-1); Eosinophil# 0.07 X10^3/uL; Eosinophils% 1.6 % (0-5); Hematocrit 27.8 % (37-47); Hemoglobin 8.4 g/dL (12.0-15.0); Lymphocyte # 0.68 X10^3/ul (0.83-4.51); Lymphocyte % 15.7 % (19-41); Mean Corp Hgb Conc 30.2 g/dL (32-36); Mean Corpuscular Hgb 24.1 pg (27.0-32.0); Mean Corpuscular Volume 79.7 fL (81-99); Monocyte% 9.2 % (0-10); NRBC Flagged by Analyzer 0.5 % (0-5); Neutrophil # 3.11 X10^3/uL (2.7-7.7); Neutrophil % 71.9 % (47-70); POSITIVE COUNT YES; Platelet Count 53 K/mm3 (150-450); RBC Distribution Width CV 18.5 % (11.6-14.6); RBC Distribution Width SD 52.2 fl (35.1-43.9); Red Blood Count 3.49 M/mm3 (4.2-5.4); White Blood Count 4.3 K/mm3 (4.4-11.0)
[2024-12-09 18:40] VITALS: BP 148/92; PULSE 107
[2024-12-09 18:54] LABS: Anion Gap 15 (5-15); BUN 8 mg/dL (4-19); BUN/Creat Ratio 10.6 RATIO (10-20); Carbon Dioxide 20.2 mmol/L (21.0-32.0); Chloride 97 mmol/L (98-108); Creatinine, Serum 0.76 mg/dL (0.70-1.20); EST Glomerular Filtration Rate 97 (>60); Estimated Creatinine Clearance 85.38 ml/min (50-250); Glucose 114 mg/dL (70-99); Potassium 3.3 mmol/L (3.3-5.1); Sodium Level 132 mmol/L (133-145)
--- NOTE | 2024-12-09 19:07 | ED.RN ---
Pt. asked this RN if I knew of any one in this ER who smokes. I responded with no. Pt. then states she wanted one more cigarette before she got admitted. This Rn explained to pt. that she was not allowed to leave the ER to smoke and that if she left she would be leaving AMA therefore forfeiting any work towards getting her transferred.
[2024-12-09 19:19] LABS: Alcohol, Blood (Medical)-Serum < 10.1 mg/dL (<=10.0)
--- NOTE | 2024-12-09 19:21 | HP.PCM.HOS_ITS ---
HPI - General General Date of Admission: 12/09/24 Date of Service: 12/09/24 Chief Complaint: Left AMA to Smoke a Cigarette while Waiting for Transfer Bed. 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 Large splenorenal shunt is present all indicative of portal hypertension. Small perihepatic ascites is seen with heterogenous appearance of the liver given suspicion of portal hypertension GI consultation was recommended with cirrhosis to be ruled out. There was also mention of thickening of the gastroesophageal junction to be correlated clinically for reflux disease compounded by Acute EtOH Intoxication with JESENIA of 324 mg/dL in the setting of Chronic EtOH Abuse with patient and transfuse 3 units of packed red blood cells and empirically started on IV piperacillin-tazobactam, IV Protonix and IV octreotide with patient waiting for transfer bed at [facility] when she became inpatient while admitted and then left AMA at approximately 13:58 hrs. to go outside and smoke a cigarette before returning back to the ER for readmission. Ms. Huang denies new complaints, new bleeding or abdominal pain. She states she left because she thought she is feeling better but when she left the hospital she noted dyspnea on exertion so she decided to come back so she could wait for her transfer bed once again. There is no report of fever, chills, nausea, vomiting, diarrhea, constipation, chest pain, abdominal pain, shortness of breath or headache. Patient was sternly warned not to leave the hospital again for further list reasons with potentially life-threatening diagnoses and apparently poor decision-making capacity. She was then admitted to the PCU for ongoing care for status expected to extend beyond 2 midnights. PFSH Home Medications ?Medication ?Instructions ?Recorded ?Last Taken ?Type omeprazole 20 mg tablet,delayed 40 mg PO DAILY ask pcp 12/09/24 Unknown History release pediatric multivit no.17-ferrous 2 tab PO DAILY ask pc p 12/09/24 Unknown History fumarate 15 mg iron chewable tablet Allergy/AdvReac Type Severity Reaction Status Date / Time latex Allergy Intermediate Rash Verified 12/09/24 21:35 Social History Smoking Status: Current every day smoker tobacco type: cigarettes ROS ROS Narrative Review of Systems: Constitutional: Patient denies fever or chills. Eyes: Patient denies change in vision or discharge from eyes. ENT: Patient denies runny nose, sore throat or ear pain. Resp: Patient did have dyspnea on exertion but she denies cough. CV: Patient denies chest pain, palpitations, heart racing or lower extremity edema. GI: Patient denies abdominal pain, nausea, vomiting, diarrhea or constipation. : Patient denies dysuria, hematuria or urinary frequency. MSK: Patient admits to back pain but she denies lower extremity pain or neck pain. Skin: Patient denies rash, abscess, wounds or jaundice. Psych: Patient denies symptoms of uncontrolled depression or anxiety. Neuro: Patient denies headache, paresthesias or focal neurologic deficits. Allergy: Patient denies lip swelling, tongue swelling or urticaria. Hematology: Patient denies recent bleeding. Endocrinology: Patient denies polyuria, polydipsia or polyphagia. 14 point ROS otherwise negative save for positives noted above in HPI. Vital Signs Vital Signs Vital Signs: 12/09/24 16:41 12/09/24 18:29 12/09/24 18:40 Temperature 99.0 F Temperature Source Oral Pulse Rate 96 107 H Respiratory Rate 16 Respiratory Effort Normal Respiratory Depth Normal Respiratory Pattern Normal Blood Pressure 141/85 H 148/92 H Blood Pressure Mean 103 110 Pulse Ox 98 Oxygen Delivery Method Room Air Weight Weight: 152 lb Body Mass Index (BMI) 26.1 Physical Exam Const alert, oriented x3, no apparent distress and average body habitus Constitutional Narrative: Patient appears chronically ill. General Appearance: cooperative HEENT normocephalic, head/scalp atraumatic, hearing grossly normal bilaterally and moist oral mucous membranes Eyes PERRL and EOMs intact bilaterally Eyes Narrative: Pale conjunctiva noted bilaterally. Neck no lymphadenopathy and supple Resp normal respiratory effort, no retractions, no use of accessory muscles and clear to auscultation bilaterally Cardio regular rate and regular rhythm GI normal to inspection, nondistended, normoactive bowel sounds, soft to palpation, non-tender and non-distended Extremity normal to inspection, full ROM and no clubbing, cyanosis or edema Skin Skin Narrative: Patient is no evidence of rash, abscess, wounds or jaundice. Neuro oriented x3, CN's II-XII intact bilaterally, moves all extremities and no focal motor deficits Sensorium / Orientation: awake, alert, oriented to person, oriented to place and oriented to time Speech: speech normal Psych affect normal Results Medical Records Data Attestation: I reviewed the patient's medical records Lab / Micro Data Attestation: I reviewed the patient's lab results. 12/09/24 18:25 12/09/24 18:25 Labs: Laboratory Results - last 24 hr 12/09/24 18:25: WBC 4.3 L, RBC 3.49 L, Hgb 8.4 L, Hct 27.8 L, MCV 79.7 L, MCH 24.1 L, MCHC 30.2 L, RDW Std Deviation 52.2 H, RDW Coeff of Jose Alberto 18.5 H, Plt Count 53 L, MPV 11.0, Immature Gran % (Auto) 0.700, Neut % (Auto) 71.9 H, Lymph % (Auto) 15.7 L, [place] % (Auto) 9.2, Eos % (Auto) 1.6, Baso % (Auto) 0.9, Absolute Neuts (auto) 3.1, Absolute Lymphs (auto) 0.68 L, Nucleated RBC % 0.5, S odium 132 L, Potassium 3.3, Chloride 97 L, Carbon Dioxide 20.2 L, Anion Gap 15, BUN 8, Creatinine 0.76, Estim Creat Clear Calc 85.38, Est GFR (MDRD) Non-Af 97, BUN/Creatinine Ratio 10.6, Glucose 114 H, Calcium 9.0, Ethyl Alcohol < 10.1 Assessment & Plan Assessment/Plan (1) ABLA (acute blood loss anemia): (2) Tobacco abuse: (3) Hypomagnesemia: (4) Acute alcohol intoxication: QUALIFIERS: Complication of substance-induced condition: with unspecified complication Qualified Code(s): F10.929 - Alcohol use, unspecified with intoxication, unspecified (5) Chronic thrombosis of splenic vein: (6) Inferior mesenteric vein thrombosis: (7) Superior mesenteric vein thrombosis: (8) Alcohol dependence: QUALIFIERS: Complication of substance-induced condition: with unspecified complication Substance use status: with intoxication Qualified Code(s): F10.229 - Alcohol dependence with intoxication, unspecified (9) Alcoholic cirrhosis: QUALIFIERS: Ascites presence: with ascites Qualified Code(s): K 70.31 - Alcoholic cirrhosis of liver with ascites (10) Chronic alcohol abuse: PLAN: Plan 1. CT scan done at 4:36 PM on December 07, 2024 revealed findings worrisome for portal hypertension with thrombosis present within the superior mesenteric, inferior mesenteric vein and potentially the splenic vein. Large splenorenal shunt is present all indicative of portal hypertension. Small perihepatic ascites is seen with heterogenous appearance of the liver given suspicion of portal hypertension GI consultation was recommended with cirrhosis to be ruled out. There was also mention of thickening of the gastroesophageal junction to be correlated clinically for reflux disease. Complicated by laboratory evidence of pancytopenia; with Leukopenia of 1.9K with Left-shift of 1.6%, hemoglobin of 4.4 g/dL and platelet count of 39K all present on admission. The ER physician then initially spoke to [facility] but they were informed that this patient has previously established care with [facility]. The patient was then transfused 3 units of PRBC's plus platelets and she was empirically treated with IV Rocephin and IV Protonix in addition to 3 doses of as needed IV morphine for recurrent back pain with persistently stable vital signs throughout the day with hemoglobin now rising to 8.4 g/dL and then patient then unwisely leaving A to go outside and smoke who just returned to be readmitted - Plan is to transfer to [facility] when a bed becomes available with the patient likely moving to the back of the line. Recheck CBC with differential in a.m. to follow trend and to see if more blood or platelets will need to be transfused. We will restart empiric coverage with IV piperacillin-tazobactam and continue IV Protonix as previous. Give morphine IV as needed for severe (level 6-10/10) pain. Give ondansetron IV as needed for nausea and vomiting. Resume IV octreotide. Patient will not be allowed to leave [place] again until she is safely transferred to tertiary care facility. Finally, we will consult gastroenterology to see this patient on rounds in the a.m. for further recommendations with help appreciated in advance. 2. Recent Acute EtOH Intoxication with JESENIA of 324 mg/dL present on admission in the setting of Chronic EtOH Abuse compounding #1 - Started prophylactic treatment with IV phenobarbital to prevent impending EtOH withdrawal. EtOH Cessation will once again to be strongly encouraged. 3. Hypomagnesemia of 1.4 mg/dL present on this readmission adding to the medical complexity of #1 & #2 - Give supplemental magnesium sulfate IV once and recheck level in AM to confirm repletion. 4. History of Tobacco Abuse; with patient leaving AMA earlier today before returning adding to the burden of disease outlined from #1 - #3 - Tobacco Cessation will be strongly encouraged with Nicotine patch offered to control cravings. 5. [facility] noted the patient had been through their system in August 2024 with a hemoglobin of 7.9 g/dL with leukopenia of 2.7K and a platelet count of 50K at that time and she had previously been diagnosed with Cirrhosis, chronic pancytopenia, history of superior mesenteric vein thrombosis and chronic thrombosis of the splenic vein - Noted with progressively worsening pattern of illness. 6. DVT prophylaxis - Due to patient's thrombocytopenia of 53K present on admission she is not deemed a suitable candidate for either chemoprophylaxis or SCDs at this time. Total time: Approximately (but not less than) 75 minutes. Update: Patient was noted to become agitated and claimed to have taken a handful of pills she claims she got from her mother a few hours after admission. She was treated initially with IV lorazepam followed by a dose of IV Vistaril for persistent agitation. Finally, she was treated with IM Haldol. Repeat urine drug screen is pending at this time. Charges/Coding Visit Charges Inpatient E&M: 11484 Init Hosp L3
[2024-12-09] MEDS: Pantoprazole Sodium 80 MG in 0.9% Normal Saline (100mL Bag) 80 ML 10 MG CONT INF (19:38)
[2024-12-09] MEDS: Phenobarbital 32.4 MG Tablet 97.2 MG PO (20:16)
[2024-12-09 20:19] LABS: Magnesium 1.4 mg/dL (1.5-2.2)
[2024-12-09 20:21] VITALS: BP 139/87; PULSE 76; RESP 15; TEMP 37.1; O2SAT 96
[2024-12-09] MEDS: Octreotide 0.5 MG in Dextrose 5%-Water (250mL Bag) 250 ML 12.5 MG CONT INF (20:52)
[2024-12-09 21:07] VITALS: BP 134/83; PULSE 75; RESP 16; TEMP 36.8; O2SAT 99
[2024-12-09 21:21] VITALS: BMI 26.6
[2024-12-09] MEDS: 0.9% Normal Saline (1000mL) 1,000 ML 70 ML IV (22:07)
[2024-12-09] MEDS: Gabapentin 300 MG Capsule PO (22:07)
[2024-12-09] MEDS: Dicyclomine 10 MG Capsule 20 MG PO (22:08)
[2024-12-09 22:43] VITALS: O2SAT 99
[2024-12-09] MEDS: traZODone 100 MG Tablet PO (22:57)
[2024-12-09] MEDS: Magnesium Sulfate 2 GM in Dextrose 5%-Water (100mL Bag) 100 ML IV (22:57)
[2024-12-10] MEDS: 0.9% Saline Lock 10 ML Syringe IV (00:05)
[2024-12-10] MEDS: Lorazepam 2 MG/ML WCH Syringe 1 MG IV (00:05)
[2024-12-10] MEDS: Phenobarbital 32.4 MG Tablet 97.2 MG PO ×2 (00:05→03:21)
[2024-12-10 01:22] LABS: Amphetamine Urine NEGATIVE (<1000 ng/mL); Barbiturate Urine PRESUMPTIVE POSITIVE (< 200 ng/mL); Benzodiazepine Urine NEGATIVE (< 200 ng/mL); Buprenorphine Urine NEGATIVE (< 200 ng/mL); Cocaine Urine NEGATIVE (< 300 ng/mL); Fentanyl, Urine NEGATIVE; Methadone Urine NEGATIVE (< 300 ng/mL); Opiates Urine NEGATIVE (< 300 ng/mL); Oxycodone, Urine NEGATIVE (< 100 ng/mL); PCP Urine NEGATIVE (< 25 ng/mL); THC Urine NEGATIVE (< 50 ng/mL)
[2024-12-10] MEDS: hydrOXYzine 50 MG/ML Vial 100 MG IM (01:30)
[2024-12-10 03:00] VITALS: BP 114/74; PULSE 86; RESP 16; TEMP 36.8; O2SAT 99
[2024-12-10] MEDS: Haloperidol Lactate 5 MG/ML Vial 2 MG IM ×2 (03:21→21:12)
[2024-12-10 03:49] VITALS: BMI 26.6
[2024-12-10] MEDS: Pantoprazole Sodium 80 MG in 0.9% Normal Saline (100mL Bag) 80 ML 10 MG CONT INF ×2 (05:27→17:19)
[2024-12-10 07:39] LABS: Absolute Lymphocyte Count 0.59 X10^3/uL (0.83-4.51); Basophil# 0.02 X10^3/uL; Basophil% 0.6 % (0-1); Eosinophil# 0.11 X10^3/uL; Eosinophils% 3.4 % (0-5); Hematocrit 25.3 % (37-47); Hemoglobin 7.5 g/dL (12.0-15.0); Lymphocyte # 0.59 X10^3/ul (0.83-4.51); Lymphocyte % 18.3 % (19-41); Mean Corp Hgb Conc 29.6 g/dL (32-36); Mean Corpuscular Hgb 24.5 pg (27.0-32.0); Mean Corpuscular Volume 82.7 fL (81-99); Mean Platelet Vol. 10.8 fl (6.2-12.0); Monocyte# 0.46 X10^3/uL; Monocyte% 14.3 % (0-10); NRBC Flagged by Analyzer 0.6 % (0-5); Neutrophil # 2.02 X10^3/uL (2.7-7.7); Neutrophil % 62.8 % (47-70); POSITIVE COUNT YES; POSITIVE DIFFERENTIAL YES; Platelet Count 51 K/mm3 (150-450); RBC Distribution Width SD 55.5 fl (35.1-43.9); Red Blood Count 3.06 M/mm3 (4.2-5.4); White Blood Count 3.2 K/mm3 (4.4-11.0)
[2024-12-10 08:31] LABS: Acetaminophen (Tylenol) Level < 5.0 ug/mL (8.0-19.0)
--- NOTE | 2024-12-10 08:32 | PN.HOSP_ITS ---
Reason for Visit Reason for Visit: Diagnoses Acute posthemorrhagic anemia (12/09/24) Hypomagnesemia (12/09/24) Alcohol abuse, uncomplicated (12/09/24) Alcohol dependence with intoxication, unspecified (12/09/24) Alcohol use, unspecified with intoxication, unspecified (12/09/24) Chronic embolism and thrombosis of other specified veins (12/09/24) Acute infarction of intestine, part and extent unspecified (12/09/24) Alcoholic cirrhosis of liver with ascites (12/09/24) Tobacco use (12/09/24) Subjective Subjective Declines to speak. Able to mutter that she took a ton of drugs. Later was texting her mother saying she was kidnapped. Objective Data Objective Data Vital Signs: Vital Signs Temp Pulse Resp BP Pulse Ox O2 Del Method 36.8 C 86 16 114/74 99 Room Air 12/10/24 03:00 12/10/24 03:00 12/10/24 03:00 12/10/24 03:00 12/10/24 03:00 12/10/24 03:00 Oxygen Delivery Method Room Air Weight: 70.5 kg Body Mass Index (BMI) 26.6 Intake & Output: Intake and Output for Last 24 Hours 12/08/24 12/09/24 12/10/24 23:59 23:59 23:59 Intake Total 202.17 / 202.17 Output Total 100 / 100 Balance 102.17 / 102.17 Lab / Micro Data 12/10/24 07:00 12/10/24 07:00 Labs: Laboratory Results - last 24 hr 12/09/24 18:25: WBC 4.3 L, RBC 3.49 L, Hgb 8.4 L, Hct 27.8 L, MCV 79.7 L, MCH 24.1 L, MCHC 30.2 L, RDW Std Deviation 52.2 H, RDW Coeff of Jose Alberto 18.5 H, Plt Count 53 L, MPV 11.0, Immature Gran % (Auto) 0.700, Neut % (Auto) 71.9 H, Lymph % (Auto) 15.7 L, [place] % (Auto) 9.2, Eos % (Auto) 1.6, Baso % (Auto) 0.9, Absolute Neuts (auto) 3.1, Absolute Lymphs (auto) 0.68 L, Nucleated RBC % 0.5, S odium 132 L, Potassium 3.3, Chloride 97 L, Carbon Dioxide 20.2 L, Anion Gap 15, BUN 8, Creatinine 0.76, Estim Creat Clear Calc 85.38, Est GFR (MDRD) Non-Af 97, BUN/Creatinine Ratio 10.6, Glucose 114 H, Calcium 9.0, Magnesium 1.4 L, Ethyl Alcohol < 10.1 12/10/24 00:20: Urine Opiates Screen NEGATIVE, U Buprenorphine Qual NEGATIVE, Ur Oxycodone Screen NEGATIVE, Urine Methadone Screen NEGATIVE, Urine Fentanyl Screen NEGATIVE, Ur Barbiturates Screen PRESUMPTIVE POSITIVE, Ur Phencyclidine Scrn NEGATIVE, Ur Amphetamines Screen NEGATIVE, U Benzodiazepines Scrn NEGATIVE, Urine Cocaine Screen NEGATIVE, U Cannabinoids Screen NEGATIVE 12/10/24 07:00: WBC 3.2 L, RBC 3.06 L, Hgb 7.5 L, Hct 25.3 L, MCV 82.7, MCH 24.5 L, MCHC 29.6 L, RDW Std Deviation 55.5 H, RDW Coeff of Jose Alberto 19.0 H, Plt Count 51 L, MPV 10.8, Immature Gran % (Auto) 0.600, Neut % (Auto) 62.8, Lymph % (Auto) 18.3 L, [place] % (Auto) 14.3 H, Eos % (Auto) 3.4, Baso % (Auto) 0.6, Absolute Neuts (auto) 2.0, Absolute Lymphs (auto) 0.59 L, Nucleated RBC % 0.6, A cetaminophen < 5.0 L Physical Exam Const alert and no apparent distress HEENT head/scalp atraumatic and moist oral mucous membranes Resp normal respiratory effort, no retractions, no use of accessory muscles and clear to auscultation bilaterally Cardio regular rate, regular rhythm, S1 normal heart sound and S2 normal heart sound GI normal to inspection, nondistended, normoactive bowel sounds, soft to palpation, non-tender and non-distended Neuro Sensorium / Orientation: awake and alert Assessment & Plan Assessment/Plan (1) ABLA (acute blood loss anemia): PLAN: Plan ABLA (acute blood loss anemia): PLAN: Hg down to 4.4. Transfused 4 units PRBCs, up to 7.3, and recheck shows hg of 7.5 in pt that is pancytopenic Check labs. on octreotide and pantoprazole gtts. GI on consult. DARRON Gonzalez Friend, since no further melena, no imminent plans for endoscopy. Ok for clear diet. Superior mesenteric vein thrombosis: PLAN: Along with inferior mesenteric venin and possible splenic vein thrombosis No anticoagulation at this time given GI bleed and anemia. Acute alcohol intoxication: QUALIFIERS: Complication of substance-induced condition: with unspecified complication Qualified Code(s): F10.929 - Alcohol use, unspecified with intoxication, unspecified PLAN: On phenobarbital IV, change to PO taper. Thiamine and folate. Toxic encephalopathy * took ton of drugs * avoid potentiating medications. PLAN: Plan Alcoholic cirrhosis. poor prognosis. MELD 10. Child-Hackett: B VTE prophylaxis: not indicated given anemia and thrombocytopenia. Charges/Coding Visit Charges Inpatient E&M: 84647 Subs Hosp L2
[2024-12-10 08:35] LABS: ALB/GLOB Ratio 1.4 RATIO (0.9-2.4); AST(SGOT) 49 U/L (<=31); Alanine Aminotransfer ALT/SGPT 14 U/L (<=34); Albumin, Serum 3.7 g/dL (3.5-5.0); Alkaline Phosphatase 109 U/L (35-104); Anion Gap 13 (5-15); BUN 8 mg/dL (4-19); BUN/Creat Ratio 12.2 RATIO (10-20); Calcium,Total 8.5 mg/dL (7.6-11.0); Carbon Dioxide 20.3 mmol/L (21.0-32.0); Chloride 100 mmol/L (98-108); Creatinine, Serum 0.64 mg/dL (0.70-1.20); EST Glomerular Filtration Rate 108 (>60); Estimated Creatinine Clearance 102.43 ml/min (50-250); Globulin 2.7 g/dL (2.2-4.2); Glucose 122 mg/dL (70-99); Phosphorus 2.2 mg/dL (2.7-4.5); Potassium 2.8 mmol/L (3.3-5.1); Protein, Total 6.4 g/dL (5.9-8.4); Sodium Level 133 mmol/L (133-145); Total Bilirubin 1.61 mg/dL (0.00-1.30)
[2024-12-10 09:00] VITALS: BP 140/75; PULSE 67; RESP 16; TEMP 36.6; O2SAT 98
--- NOTE | 2024-12-10 10:47 | NURSING ---
Report called to nurse Aleah MORROW for pt to be transferred to [facility].
[2024-12-10 11:30] VITALS: BP 151/82; PULSE 67; RESP 16; TEMP 36.7; O2SAT 97
--- NOTE | 2024-12-10 13:06 | CASEMGMT ---
Social Work- Pt has SDOH, however, is groggy and confused and unable to appropriately answer questions. SW remains available to follow. JOHANN Knight
[2024-12-10 15:41] VITALS: BP 145/84; PULSE 67; RESP 16; TEMP 36.6; O2SAT 100; BMI 26.6
[2024-12-10 16:56] VITALS: BP 145/84; PULSE 67; RESP 16; TEMP 36.6; O2SAT 100
[2024-12-10] MEDS: Octreotide 0.5 MG in Dextrose 5%-Water (250mL Bag) 250 ML 12.5 MG CONT INF (18:21)
[2024-12-10 20:06] VITALS: BP 152/77; PULSE 68; RESP 18; TEMP 36.6; O2SAT 99
[2024-12-10] MEDS: Potassium Chloride Oral Tablet 20 MEQ 60 MEQ PO (20:12)
[2024-12-10] MEDS: Dicyclomine 10 MG Capsule 20 MG PO (20:12)
[2024-12-10] MEDS: traZODone 100 MG Tablet PO (20:12)
[2024-12-11 02:07] VITALS: BP 154/89; PULSE 71; RESP 18; TEMP 36.8; O2SAT 97
[2024-12-11] MEDS: Pantoprazole Sodium 80 MG in 0.9% Normal Saline (100mL Bag) 80 ML 10 MG CONT INF ×3 (02:13→22:03)
[2024-12-11] MEDS: hydrOXYzine 50 MG/ML Vial 100 MG IM (02:13)
[2024-12-11 03:06] LABS: Internal QC Validated? YES +Cl - CLEAR BKGD
[2024-12-11 03:07] LABS: Pregnancy, Urine Negative Negative
[2024-12-11 05:27] LABS: Absolute Lymphocyte Count 0.52 X10^3/uL (0.83-4.51); Absolute Neutrophil Count 1.8 X10^3/uL (2.0-7.7); Basophil# 0.02 X10^3/uL; Basophil% 0.7 % (0-1); Eosinophil# 0.08 X10^3/uL; Eosinophils% 2.8 % (0-5); Hematocrit 26.1 % (37-47); Hemoglobin 7.7 g/dL (12.0-15.0); Lymphocyte # 0.52 X10^3/ul (0.83-4.51); Lymphocyte % 18.4 % (19-41); Mean Corp Hgb Conc 29.5 g/dL (32-36); Mean Corpuscular Hgb 24.7 pg (27.0-32.0); Mean Corpuscular Volume 83.7 fL (81-99); Mean Platelet Vol. 10.6 fl (6.2-12.0); Monocyte# 0.37 X10^3/uL; Monocyte% 13.1 % (0-10); NRBC Flagged by Analyzer 0 % (0-5); Neutrophil # 1.82 X10^3/uL (2.7-7.7); Neutrophil % 64.3 % (47-70); POSITIVE COUNT YES; POSITIVE DIFFERENTIAL YES; Platelet Count 52 K/mm3 (150-450); RBC Distribution Width CV 19.8 % (11.6-14.6); RBC Distribution Width SD 57.9 fl (35.1-43.9); Red Blood Count 3.12 M/mm3 (4.2-5.4); White Blood Count 2.8 K/mm3 (4.4-11.0)
[2024-12-11 05:32] LABS: Differential Indicated SCAN CRITERIA MET
[2024-12-11 06:27] LABS: Platelet Estimate MOD DEC (ADEQ)
[2024-12-11 06:28] LABS: Pathologist Review May foll
--- NOTE | 2024-12-11 06:53 | NURSING ---
Addendum entered by Pancho Mcneill 12/11/24 06:57: Sung called at 0457 on 12/11/2024 Original Note: Sung called for update on pts status. update given. no bed at this time according to transfer line. pt updated as well
[2024-12-11 07:10] LABS: Anion Gap 14 (5-15); BUN 8 mg/dL (4-19); BUN/Creat Ratio 11.9 RATIO (10-20); Calcium,Total 8.6 mg/dL (7.6-11.0); Carbon Dioxide 17.7 mmol/L (21.0-32.0); Chloride 102 mmol/L (98-108); Creatinine, Serum 0.69 mg/dL (0.70-1.20); EST Glomerular Filtration Rate 106 (>60); Estimated Creatinine Clearance 95.01 ml/min (50-250); Glucose 89 mg/dL (70-99); Magnesium 1.9 mg/dL (1.5-2.2); Phosphorus 2.4 mg/dL (2.7-4.5); Potassium 3.8 mmol/L (3.3-5.1); Sodium Level 133 mmol/L (133-145)
--- NOTE | 2024-12-11 08:41 | PN.HOSP_ITS ---
Reason for Visit Reason for Visit: Diagnoses Acute posthemorrhagic anemia (12/09/24) Hypomagnesemia (12/09/24) Alcohol abuse, uncomplicated (12/09/24) Alcohol dependence with intoxication, unspecified (12/09/24) Alcohol use, unspecified with intoxication, unspecified (12/09/24) Chronic embolism and thrombosis of other specified veins (12/09/24) Acute infarction of intestine, part and extent unspecified (12/09/24) Alcoholic cirrhosis of liver with ascites (12/09/24) Tobacco use (12/09/24) Subjective Subjective Still agitated overnight. Objective Data Objective Data Vital Signs: Vital Signs Temp Pulse Resp BP Pulse Ox O2 Del Method 36.8 C 71 18 154/89 H 97 Room Air 12/11/24 02:07 12/11/24 02:07 12/11/24 02:07 12/11/24 02:07 12/11/24 02:07 12/11/24 02:07 Oxygen Delivery Method Room Air Weight: 70.5 kg Body Mass Index (BMI) 26.6 Intake & Output: Intake and Output for Last 24 Hours 12/09/24 12/10/24 12/11/24 23:59 23:59 23:59 Intake Total 1803.17 / 1803.17 89 / 89 Output Total 100 / 100 Balance 1703.17 / 1703.17 89 / 89 Lab / Micro Data 12/11/24 04:38 12/11/24 04:38 Labs: Laboratory Results - last 24 hr 12/11/24 02:45: Urine Test Negative 12/11/24 04:38: WBC 2.8 L, RBC 3.12 L, Hgb 7.7 L, Hct 26.1 L, MCV 83.7, MCH 24.7 L, MCHC 29.5 L, RDW Std Deviation 57.9 H, RDW Coeff of Jose Alberto 19.8 H, Plt Count 52 L, MPV 10.6, Immature Gran % (Auto) 0.700, Neut % (Auto) 64.3, Lymph % (Auto) 18.4 L, [place] % (Auto) 13.1 H, Eos % (Auto) 2.8, Baso % (Auto) 0.7, Absolute Neuts (auto) 1.8 L, Absolute Lymphs (auto) 0.52 L, Nucleated RBC % 0, Diff Path Review May foll, Platelet Estimate MOD DEC, Sodium 133, Potassium 3.8, Chloride 102, Carbon Dioxide 17.7 L, Anion Gap 14, BUN 8, Creatinine 0.69 L, Estim Creat Clear Calc 95.01, Est GFR (MDRD) Non-Af 106, BUN/Creatinine Ratio 11.9, Glucose 89, Calcium 8.6, Phosphorus 2.4 L, Magnesium 1.9 Physical Exam Const Constitutional Narrative: awake. refuses to speak with me and establish eye contact. HEENT head/scalp atraumatic and moist oral mucous membranes Resp normal respiratory effort, no retractions, no use of accessory muscles and clear to auscultation bilaterally Cardio regular rate, regular rhythm, S1 normal heart sound and S2 normal heart sound GI normal to inspection, nondistended, normoactive bowel sounds, soft to palpation, non-tender and non-distended Neuro oriented x3 and CN's II-XII intact bilaterally Psych affect normal Assessment & Plan Assessment/Plan (1) ABLA (acute blood loss anemia): PLAN: Plan ABLA (acute blood loss anemia): * Hg down to 4.4. Transfused 4 units PRBCs last admission and Hg has remained stable. * in pt that is pancytopenic * on octreotide and pantoprazole gtts. * GI on consult. Superior mesenteric vein thrombosis: * Along with inferior mesenteric venin and possible splenic vein thrombosis * No anticoagulation at this time given GI bleed and anemia. Hypokalemia: * improved with replacement. Toxic encephalopathy * overall improved, but still confused. * took ton of drugs * avoid potentiating medications. Alcoholic cirrhosis. poor prognosis. MELD 10. Child-Hackett: B VTE prophylaxis: SCDs Charges/Coding Visit Charges Inpatient E&M: 92715 Subs Hosp L2
--- NOTE | 2024-12-11 12:51 | CASEMGMT ---
Social Work SW spoke w/RN, pt is alert and oriented to self only. SW cannot complete SDOH at this time. SW will complete w/pt when pt able to participate. ERNA Wheeler
[2024-12-11] MEDS: Folic Acid 1 MG Tablet PO (14:53)
[2024-12-11] MEDS: Multivitamins,Therapeutic Tablet 1 TABLET PO (14:53)
[2024-12-11] MEDS: Thiamine Hydrochloride 100 MG Tablet PO (14:53)
[2024-12-11 14:59] VITALS: BP 148/89; PULSE 72; RESP 16; TEMP 36.7; O2SAT 98
[2024-12-11 15:10] VITALS: PULSE 57
[2024-12-11] MEDS: Octreotide 0.5 MG in Dextrose 5%-Water (250mL Bag) 250 ML 12.5 MG CONT INF (15:45)
[2024-12-11 22:01] VITALS: BP 150/85; PULSE 59; RESP 18; TEMP 36.8; O2SAT 99
[2024-12-12 03:36] VITALS: BP 124/67; PULSE 67; RESP 18; TEMP 36.8; O2SAT 98
--- NOTE | 2024-12-12 05:07 | NURSING ---
[facility] called for update. update given. still no bed and pt remains on waitlist.
[2024-12-12 06:00] VITALS: BMI 26.5
[2024-12-12] MEDS: Pantoprazole Sodium 80 MG in 0.9% Normal Saline (100mL Bag) 80 ML 10 MG CONT INF ×2 (06:29→16:41)
[2024-12-12 06:42] LABS: Absolute Lymphocyte Count 0.68 X10^3/uL (0.83-4.51); Absolute Neutrophil Count 1.9 X10^3/uL (2.0-7.7); Basophil# 0.04 X10^3/uL; Basophil% 1.3 % (0-1); Eosinophils% 3.4 % (0-5); Hemoglobin 8.6 g/dL (12.0-15.0); Lymphocyte # 0.68 X10^3/ul (0.83-4.51); Lymphocyte % 22.8 % (19-41); Mean Corp Hgb Conc 29.7 g/dL (32-36); Mean Corpuscular Hgb 24.8 pg (27.0-32.0); Mean Corpuscular Volume 83.6 fL (81-99); Monocyte# 0.29 X10^3/uL; Monocyte% 9.7 % (0-10); NRBC Flagged by Analyzer 0 % (0-5); Neutrophil # 1.86 X10^3/uL (2.7-7.7); Neutrophil % 62.5 % (47-70); POSITIVE COUNT YES; POSITIVE MORPHOLOGY YES; RBC Distribution Width CV 20.2 % (11.6-14.6); RBC Distribution Width SD 59.8 fl (35.1-43.9); Red Blood Count 3.47 M/mm3 (4.2-5.4)
[2024-12-12 06:45] LABS: Differential Indicated SCAN CRITERIA MET; Platelet Count 48 K/mm3 (150-450)
[2024-12-12 06:55] VITALS: PULSE 64
[2024-12-12 07:08] LABS: Anion Gap 14 (5-15); BUN 8 mg/dL (4-19); BUN/Creat Ratio 12.8 RATIO (10-20); Calcium,Total 8.6 mg/dL (7.6-11.0); Carbon Dioxide 18.1 mmol/L (21.0-32.0); Chloride 101 mmol/L (98-108); Creatinine, Serum 0.64 mg/dL (0.70-1.20); EST Glomerular Filtration Rate 108 (>60); Estimated Creatinine Clearance 102.43 ml/min (50-250); Glucose 96 mg/dL (70-99); Potassium 3.5 mmol/L (3.3-5.1); Sodium Level 133 mmol/L (133-145)
[2024-12-12 07:14] LABS: Anisocytosis 2+; Differential Comment SCANNED; Platelet Estimate MKD DEC (ADEQ); Polychromasia 1+
[2024-12-12 07:15] LABS: Acanthocytes RARE; Hypochromasia 2+; Ovalocyte 1+; Pathologist Review May foll; Target Cells RARE; Tear Drop Cell 1+
--- NOTE | 2024-12-12 08:13 | PN.HOSP_ITS ---
Reason for Visit Reason for Visit: Diagnoses Acute posthemorrhagic anemia (12/09/24) Hypomagnesemia (12/09/24) Alcohol abuse, uncomplicated (12/09/24) Alcohol dependence with intoxication, unspecified (12/09/24) Alcohol use, unspecified with intoxication, unspecified (12/09/24) Chronic embolism and thrombosis of other specified veins (12/09/24) Acute infarction of intestine, part and extent unspecified (12/09/24) Alcoholic cirrhosis of liver with ascites (12/09/24) Tobacco use (12/09/24) Subjective Subjective More alert today. Objective Data Objective Data Vital Signs: Vital Signs Temp Pulse Resp BP Pulse Ox O2 Del Method 36.8 C 64 18 124/67 H 98 Room Air 12/12/24 03:36 12/12/24 06:55 12/12/24 03:36 12/12/24 03:36 12/12/24 03:36 12/12/24 03:36 Oxygen Delivery Method Room Air Weight: 70.5 kg Body Mass Index (BMI) 26.5 Intake & Output: Intake and Output for Last 24 Hours 12/10/24 12/11/24 12/12/24 23:59 23:59 23:59 Intake Total 1803.17 / 1803.17 519.83 / 519.83 84.33 / 84.33 Output Total 100 / 100 Balance 1703.17 / 1703.17 519.83 / 519.83 84.33 / 84.33 Lab / Micro Data 12/12/24 06:33 12/12/24 06:33 Labs: Laboratory Results - last 24 hr 12/12/24 06:33: WBC 3.0 L, RBC 3.47 L, Hgb 8.6 L, Hct 29.0 L, MCV 83.6, MCH 24.8 L, MCHC 29.7 L, RDW Std Deviation 59.8 H, RDW Coeff of Jose Alberto 20.2 H, Plt Count 48 L*, MPV 10.0, Immature Gran % (Auto) 0.300, Neut % (Auto) 62.5, Lymph % (Auto) 22.8, [place] % (Auto) 9.7, Eos % (Auto) 3.4, Baso % (Auto) 1.3 H, Absolute Neuts (auto) 1.9 L, Absolute Lymphs (auto) 0.68 L, Nucleated RBC % 0, Differential Comment SCANNED, Diff Path Review May foll, Platelet Estimate MKD DEC, Polychromasia 1+, Hypochromasia 2+, Anisocytosis 2+, Target Cells RARE, Tear Drop Cells 1+, Ovalocytes 1+, Acanthocytes (Spur) RARE, Sodium 133, Potassium 3.5, Chloride 101, Carbon Dioxide 18.1 L, Anion Gap 14, BUN 8, Creatinine 0.64 L , Estim Creat Clear Calc 102.43, Est GFR (MDRD) Non-Af 108, BUN/Creatinine Ratio 12.8, Glucose 96, Calcium 8.6 Physical Exam Const alert and no apparent distress Constitutional Narrative: knows that she is in a hospital (not a hotel like yesterday). Flat affect. Establishes eye contact but quickly turns away. Resp normal respiratory effort and no retractions Neuro oriented x3 Psych Psych Narrative: flat affect. Assessment & Plan Assessment/Plan (1) ABLA (acute blood loss anemia): PLAN: Plan ABLA (acute blood loss anemia): * Last admission Hg down to 4.4. Transfused 4 units PRBCs last admission and Hg has remained stable. * in pt that is pancytopenic * on octreotide and pantoprazole gtts. * GI on consult. Superior mesenteric vein thrombosis: * Along with inferior mesenteric venin and possible splenic vein thrombosis * No anticoagulation at this time given GI bleed and anemia. Hypokalemia: * improved with replacement. Toxic encephalopathy * Improved. (had been appropriate when she left AMA on the ) * in her stupor, she admitted to taking a ton of drugs, however, today denies it. * avoid potentiating medications. Alcoholic cirrhosis. poor prognosis. MELD 10. Child-Hackett: B VTE prophylaxis: SCDs Patient was accepted to [facility] last admission. Had a very direct conversation with the patient expressing that her deceit to us during last admission saying that she was can leave AMA to smoke and then go to [place] in the morning where his is clear the patient did more than just smokes cigarettes at home though she is now being not forthcoming with any details. I explained the patient that unfortunately she has betrayed her trust but her actions will help to speak to the staff regaining tania in her statements. Patient seemed very disinterested in this conversation and did not wish to engage further. I suspect patient has underlying behavioral issues/personality disorders that will complicate her long-term care and management. Charges/Coding Visit Charges Inpatient E&M: 55255 Subs Hosp L2
[2024-12-12] MEDS: Thiamine Hydrochloride 100 MG Tablet PO (11:52)
[2024-12-12] MEDS: Folic Acid 1 MG Tablet PO (11:53)
[2024-12-12] MEDS: Multivitamins,Therapeutic Tablet 1 TABLET PO (11:53)
[2024-12-12 12:00] VITALS: BP 138/93; PULSE 64; RESP 15; TEMP 36.8; O2SAT 100
[2024-12-12] MEDS: Lidocaine 5% Patch 1 PATCH TOPICAL (12:19)
[2024-12-12 14:00] VITALS: PULSE 54
[2024-12-12] MEDS: 0.9% Saline Lock 10 ML Syringe IV (16:43)
[2024-12-12] MEDS: Octreotide 0.5 MG in Dextrose 5%-Water (250mL Bag) 250 ML 12.5 MG CONT INF (16:43)
[2024-12-12 18:00] VITALS: BP 135/79; PULSE 61; RESP 15; TEMP 36.7; O2SAT 100
--- NOTE | 2024-12-12 19:09 | NURSING ---
A&O X3, STILL REPORTS MILD H/A AND MILD VISUAL DISTURBANCES, TREMORS. PT APOLOGETIC FOR PRIOR BEHAVIOUR
[2024-12-12 22:33] VITALS: BP 136/75; PULSE 61; RESP 16; TEMP 37.3; O2SAT 98
[2024-12-12] MEDS: traZODone 100 MG Tablet PO (22:43)
[2024-12-13] MEDS: Pantoprazole Sodium 80 MG in 0.9% Normal Saline (100mL Bag) 80 ML 10 MG CONT INF ×3 (02:55→22:07)
[2024-12-13 02:57] VITALS: BP 128/73; PULSE 60; RESP 16; TEMP 36.9; O2SAT 97
[2024-12-13 05:19] VITALS: BMI 26.4
[2024-12-13 10:11] VITALS: BP 105/67; PULSE 70; RESP 16; TEMP 36.9; O2SAT 98
[2024-12-13] MEDS: Thiamine Hydrochloride 100 MG Tablet PO (10:18)
[2024-12-13] MEDS: Multivitamins,Therapeutic Tablet 1 TABLET PO (10:18)
[2024-12-13] MEDS: Folic Acid 1 MG Tablet PO (10:19)
[2024-12-13] MEDS: Lidocaine 5% Patch 1 PATCH TOPICAL (10:21)
[2024-12-13] MEDS: Octreotide 0.5 MG in Dextrose 5%-Water (250mL Bag) 250 ML 12.5 MG CONT INF (12:55)
[2024-12-13 13:07] VITALS: BP 126/80; PULSE 62; RESP 16; TEMP 36.6; O2SAT 97
--- NOTE | 2024-12-13 15:09 | CASEMGMT ---
Social Work- SW unable to complete SDOH assessment at this time due to pt mentation/confusion. SW remains available to follow. JOHANN Knight
--- NOTE | 2024-12-13 16:49 | PN.HOSP_ITS ---
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 We are currently awaiting a bed assignment at [facility] for the patient. Objective Data Objective Data Vital Signs: Vital Signs Temp Pulse Resp BP Pulse Ox O2 Del Method 98.5 F 70 16 105/67 98 Room Air 12/13/24 10:11 12/13/24 10:11 12/13/24 10:11 12/13/24 10:11 12/13/24 10:11 12/13/24 10:11 Oxygen Delivery Method Room Air Weight: 70.4 kg Body Mass Index (BMI) 26.4 Intake & Output: Intake and Output for Last 24 Hours 12/11/24 12/12/24 12/13/24 23:59 23:59 23:59 Intake Total 519.83 / 519.83 435.33 / 435.33 1351 / 1351 Balance 519.83 / 519.83 435.33 / 435.33 1351 / 1351 Lab / Micro Data 12/12/24 06:33 12/12/24 06:33 Physical Exam Const alert, oriented x3 and no apparent distress Constitutional Narrative: Patient appears older than her stated age General Appearance: cooperative, well kempt and well developed Orientation / Consciousness: awake, oriented to person, oriented to place and oriented to time HEENT normocephalic, head/scalp atraumatic and moist oral mucous membranes Eyes PERRL, EOMs intact bilaterally and conjunctivae normal Neck supple, no JVD, thyroid normal and no carotid bruits General: trachea midline Resp normal respiratory effort, no retractions, no use of accessory muscles and clear to auscultation bilaterally Auscultation: Negative for rales, rhonchi or wheezes Cardio regular rate, regular rhythm, S1 normal heart sound, S2 normal heart sound, no murmurs, no rub and no gallops GI normal to inspection, nondistended, normoactive bowel sounds, soft to palpation, non-tender and non-distended Extremity no clubbing, cyanosis or edema Skin no rashes or lesions noted General Skin Exam: no breakdown Neuro oriented x3, CN's II-XII intact bilaterally, no focal motor deficits and no sensory deficits noted Sensorium / Orientation: awake and alert Speech: speech normal Psych affect normal Assessment & Plan Assessment/Plan (1) ABLA (acute blood loss anemia): PLAN: Plan 1. Acute blood loss anemia-etiology unclear at this time, CBC will be repeated tomorrow, patient is currently on octreotide and pantoprazole drips #2 Superior mesenteric vein thrombosis-along with inferior mesenteric vein and possible splenic vein thrombosis, patient is not anticoagulated due to acute blood loss anemia #3 alcoholic cirrhosis-complicates care, management, recovery, and prognosis We are currently awaiting bed assignment at [facility] in [place], [place]. Total clinical time spent by myself addressing patient's medical issues, reviewing all of her data, and collaborating with patient's care team: 35- minutes Charges/Coding Visit Charges Inpatient E&M: 24301 Subs Hosp L2
[2024-12-13 17:15] VITALS: BP 120/75; PULSE 66; RESP 16; TEMP 36.6; O2SAT 98
--- NOTE | 2024-12-13 20:20 | CON.PCM.GI_ITS ---
HPI Consult Data Date of Consult: 12/13/24 HPI Narrative Reason for Consultation: GI bleed HPI Narrative: JARET HUANG, is a 49 F with a past medical history of Alcoholic cirrhosis. She is followed by gastroenterology at [facility]. 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 In addition to CT evidence of findings worrisome for portal hypertension with thrombosis present within the superior mesenteric, inferior mesenteric vein and potentially the splenic vein. Large splenorenal shunt is present all indicative of portal hypertension. Small perihepatic ascites is seen with heterogenous appearance of the liver given suspicion of portal hypertension. There was also mention of thickening of the gastroesophageal junction to be correlated clinically for reflux disease compounded by Acute EtOH Intoxication with JESENIA of 324 mg/dL in the setting of Chronic EtOH Abuse. She was transfuse 3 units of packed red blood cells and empirically started on IV piperacillin- tazobactam, IV Protonix and IV octreotide with patient waiting for transfer bed at [facility] when she became inpatient while admitted and then left AMA at approximately 13:58 hrs. to go outside and smoke a cigarette before returning back to the ER for readmission. Ms. Huang denies new complaints, new bleeding or abdominal pain. She states she left because she thought she is feeling better but when she left the hospital she noted dyspnea on exertion so she decided to come back so she could wait for her transfer bed once again. Patient was sternly warned not to leave the hospital again for further list reasons with potentially life-threatening diagnoses and apparently poor decision-making capacity. [facility] Home Medications ?Medication ?Instructions ?Recorded ?Last Taken ?Type omeprazole 20 mg tablet,delayed 40 mg PO DAILY ask pcp 12/09/24 Unknown History release pediatric multivit no.17-ferrous 2 tab PO DAILY ask pc p 12/09/24 Unknown History fumarate 15 mg iron chewable tablet Allergy/AdvReac Type Severity Reaction Status Date / Time latex Allergy Intermediate Rash Verified 12/09/24 21:35 Social History Smoking Status: Current every day smoker tobacco type: cigarettes ROS ROS Narrative Review of Systems: Constitutional: Patient denies fever or chills. Eyes: Patient denies change in vision or discharge from eyes. ENT: Patient denies runny nose, sore throat or ear pain. Resp: Patient did have dyspnea on exertion but she denies cough. CV: Patient denies chest pain, palpitations, heart racing or lower extremity edema. GI: Patient denies abdominal pain, nausea, vomiting, diarrhea or constipation. : Patient denies dysuria, hematuria or urinary frequency. MSK: Patient admits to back pain but she denies lower extremity pain or neck pain. Skin: Patient denies rash, abscess, wounds or jaundice. Psych: Patient denies symptoms of uncontrolled depression or anxiety. Neuro: Patient denies headache, paresthesias or focal neurologic deficits. Allergy: Patient denies lip swelling, tongue swelling or urticaria. Hematology: Patient denies recent bleeding. Endocrinology: Patient denies polyuria, polydipsia or polyphagia. 14 point ROS otherwise negative save for positives noted above in HPI. Physical Exam Const alert, oriented x3 and no apparent distress Constitutional Narrative: Patient appears older than her stated age General Appearance: cooperative, well kempt and well developed Orientation / Consciousness: awake, oriented to person, oriented to place and oriented to time HEENT normocephalic, head/scalp atraumatic and moist oral mucous membranes Eyes PERRL, EOMs intact bilaterally and conjunctivae normal Neck supple, no JVD, thyroid normal and no carotid bruits General: trachea midline Resp normal respiratory effort, no retractions, no use of accessory muscles and clear to auscultation bilaterally Auscultation: Negative for rales, rhonchi or wheezes Cardio regular rate, regular rhythm, S1 normal heart sound, S2 normal heart sound, no murmurs, no rub and no gallops GI normal to inspection, nondistended, normoactive bowel sounds, soft to palpation, non-tender and non-distended Extremity no clubbing, cyanosis or edema Skin no rashes or lesions noted General Skin Exam: no breakdown Neuro oriented x3, CN's II-XII intact bilaterally, no focal motor deficits and no sensory deficits noted Sensorium / Orientation: awake and alert Speech: speech normal Psych affect normal Lab / Micro Data 12/12/24 06:33 12/12/24 06:33 Assessment & Plan Assessment/Plan (1) ABLA (acute blood loss anemia): PLAN: Plan Acute blood loss anemia: * Last admission Hg down to 4.4. Transfused 4 units PRBCs last admission and Hg has remained stable. * in pt that is pancytopenic * on octreotide and pantoprazole gtts. * The differential diagnosis for her acute blood anemia would be portal gastropathy, gastroesophageal varices,angiodysplasia versus peptic ulcer disease. Superior mesenteric vein thrombosis: * Along with inferior mesenteric venin and possible splenic vein thrombosis * No anticoagulation at this time given GI bleed and anemia. Hypokalemia: * improved with replacement. Toxic encephalopathy * Improved. (had been appropriate when she left AMA on the ) * in her stupor, she admitted to taking a ton of drugs, however, today denies it. * avoid potentiating medications. Alcoholic cirrhosis. poor prognosis. MELD 10. Child-Hackett: B If it's gonna be a long time for her to be transferred, then she may be able to get an upper endoscopy here at [facility]. Charges/Coding Visit Charges Inpatient E&M: 95188 Init Hosp L3
[2024-12-13 21:52] VITALS: BP 141/100; PULSE 72; RESP 18; TEMP 36.6; O2SAT 99
[2024-12-13] MEDS: traZODone 100 MG Tablet PO (21:57)
[2024-12-14 05:31] VITALS: BP 114/70; PULSE 60; RESP 16; TEMP 36.7; O2SAT 97
[2024-12-14 06:00] VITALS: BMI 25.7
[2024-12-14 06:31] LABS: Absolute Lymphocyte Count 0.69 X10^3/uL (0.83-4.51); Absolute Neutrophil Count 1.2 X10^3/uL (2.0-7.7); Basophil# 0.03 X10^3/uL; Basophil% 1.2 % (0-1); Eosinophil# 0.11 X10^3/uL; Eosinophils% 4.3 % (0-5); Hematocrit 27.6 % (37-47); Hemoglobin 8.3 g/dL (12.0-15.0); Lymphocyte # 0.69 X10^3/ul (0.83-4.51); Lymphocyte % 27.3 % (19-41); Mean Corp Hgb Conc 30.1 g/dL (32-36); Mean Corpuscular Hgb 24.6 pg (27.0-32.0); Mean Corpuscular Volume 81.7 fL (81-99); Mean Platelet Vol. 10.9 fl (6.2-12.0); Monocyte# 0.53 X10^3/uL; Monocyte% 20.9 % (0-10); NRBC Flagged by Analyzer 0 % (0-5); Neutrophil # 1.16 X10^3/uL (2.7-7.7); Neutrophil % 45.9 % (47-70); POSITIVE COUNT YES; Platelet Count 63 K/mm3 (150-450); RBC Distribution Width CV 19.9 % (11.6-14.6); RBC Distribution Width SD 58.7 fl (35.1-43.9); Red Blood Count 3.38 M/mm3 (4.2-5.4); White Blood Count 2.5 K/mm3 (4.4-11.0)
[2024-12-14 07:50] VITALS: BP 118/73; PULSE 60; RESP 16; TEMP 36.7; O2SAT 99
[2024-12-14] MEDS: Thiamine Hydrochloride 100 MG Tablet PO (07:55)
[2024-12-14] MEDS: Folic Acid 1 MG Tablet PO (07:55)
[2024-12-14] MEDS: Multivitamins,Therapeutic Tablet 1 TABLET PO (07:55)
[2024-12-14] MEDS: Lidocaine 5% Patch 1 PATCH TOPICAL (07:56)
[2024-12-14] MEDS: Pantoprazole Sodium 80 MG in 0.9% Normal Saline (100mL Bag) 80 ML 10 MG CONT INF ×2 (08:04→17:39)
[2024-12-14 08:30] VITALS: BP 110/68; PULSE 70; RESP 16; TEMP 36.6; O2SAT 98
[2024-12-14] MEDS: Octreotide 0.5 MG in Dextrose 5%-Water (250mL Bag) 250 ML 12.5 MG CONT INF (11:11)
[2024-12-14 13:37] VITALS: BP 152/79; PULSE 60; RESP 16; TEMP 36.9; O2SAT 98
--- NOTE | 2024-12-14 13:56 | CASEMGMT ---
Addendum entered by Mira Black 12/14/24 16:59: TIM followed up with [facility]. Pt applied for [facility] and is eligible. Pt worked for 2 weeks in 2023. SW updated pt on pending status and about transport through [facility]. JOHANN Knight Original Note: Social Work- SW met with pt to complete SDOH assessment. SW provided resources for [facility] transportation. SW provided education and answered pt questions regarding inpatient therapy following hospitalizations. Pt states no other needs at this time. JOHANN Knight
[2024-12-14 16:06] VITALS: BP 139/73; PULSE 60; RESP 16; TEMP 37; O2SAT 97
--- NOTE | 2024-12-14 17:45 | PN.HOSP_ITS ---
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 Patient's labs today showed a stable hemoglobin, white blood cell count was low at 2.5, platelet count was low at 63,000. Patient has no complaints at this time. Objective Data Objective Data Vital Signs: Vital Signs Temp Pulse Resp BP Pulse Ox O2 Del Method 98.6 F 60 16 139/73 H 97 Room Air 12/14/24 16:06 12/14/24 16:06 12/14/24 16:06 12/14/24 16:06 12/14/24 16:06 12/14/24 16:06 Oxygen Delivery Method Room Air Weight: 68.2 kg Body Mass Index (BMI) 25.7 Intake & Output: Intake and Output for Last 24 Hours 12/12/24 12/13/24 12/14/24 23:59 23:59 23:59 Intake Total 435.33 / 435.33 1942.33 / 2095.33 Balance 435.33 / 435.33 1942. / 2095.33 Lab / Micro Data 12/14/24 06:03 12/12/24 06:33 Labs: Laboratory Results - last 24 hr 12/14/24 06:03: WBC 2.5 L, RBC 3.38 L, Hgb 8.3 L, Hct 27.6 L, MCV 81.7, MCH 24.6 L, MCHC 30.1 L, RDW Std Deviation 58.7 H, RDW Coeff of Jose Alberto 19.9 H, Plt Count 63 L, MPV 10.9, Immature Gran % (Auto) 0.400, Neut % (Auto) 45.9 L, Lymph % (Auto) 27.3, [place] % (Auto) 20.9 H, Eos % (Auto) 4.3, Baso % (Auto) 1.2 H, Absolute Neuts (auto) 1.2 L, Absolute Lymphs (auto) 0.69 L, Nucleated RBC % 0 Physical Exam Narrative alert, oriented x3 and no apparent distress Constitutional Narrative: Patient appears older than her stated age General Appearance: cooperative, well kempt and well developed Orientation / Consciousness: awake, oriented to person, oriented to place and oriented to time HEENT normocephalic, head/scalp atraumatic and moist oral mucous membranes Eyes PERRL, EOMs intact bilaterally and conjunctivae normal Neck supple, no JVD, thyroid normal and no carotid bruits General: trachea midline Resp normal respiratory effort, no retractions, no use of accessory muscles and clear to auscultation bilaterally Auscultation: Negative for rales, rhonchi or wheezes Cardio regular rate, regular rhythm, S1 normal heart sound, S2 normal heart sound, no murmurs, no rub and no gallops GI normal to inspection, nondistended, normoactive bowel sounds, soft to palpation, non-tender and non-distended Extremity no clubbing, cyanosis or edema Skin no rashes or lesions noted General Skin Exam: no breakdown Neuro oriented x3, CN's II-XII intact bilaterally, no focal motor deficits and no sensory deficits noted Sensorium / Orientation: awake and alert Speech: speech normal Psych affect normal Assessment & Plan Assessment/Plan (1) ABLA (acute blood loss anemia): PLAN: Plan 1. Acute blood loss anemia-etiology unclear at this time, hemoglobin appears to be stable at this time #2 Superior mesenteric vein thrombosis-along with inferior mesenteric vein and possible splenic vein thrombosis, patient is not anticoagulated due to acute blood loss anemia #3 alcoholic cirrhosis-complicates care, management, recovery, and prognosis We are currently awaiting bed assignment at [facility] in [place], [place]. Total clinical time spent by myself addressing patient's medical issues, reviewing all of her data, and collaborating with patient's care team: 35- minutes Charges/Coding Visit Charges Inpatient E&M: 03855 Subs Hosp L2
[2024-12-14] MEDS: traZODone 100 MG Tablet PO (20:57)
[2024-12-14 22:00] VITALS: BP 152/88; PULSE 58; RESP 16; TEMP 36.9; O2SAT 99
[2024-12-15] VITALS (8 sets, daily range): BP systolic 116–161; BP diastolic 68–89; PULSE 54–84; RESP 14–16; TEMP 36.4–36.9; O2SAT 95–99; BMI 25.7
[2024-12-15] MEDS: Pantoprazole Sodium 80 MG in 0.9% Normal Saline (100mL Bag) 80 ML 10 MG CONT INF ×2 (04:44→15:19)
--- NOTE | 2024-12-15 08:35 | NURSING ---
[facility] called by this nurse for bed update. Stated hopefully in the next 1-2 days they will have a bed available.
[2024-12-15] MEDS: Multivitamins,Therapeutic Tablet 1 TABLET PO (08:42)
[2024-12-15] MEDS: Folic Acid 1 MG Tablet PO (08:42)
[2024-12-15] MEDS: Thiamine Hydrochloride 100 MG Tablet PO (08:43)
[2024-12-15] MEDS: Lidocaine 5% Patch 1 PATCH TOPICAL (08:44)
[2024-12-15] MEDS: Octreotide 0.5 MG in Dextrose 5%-Water (250mL Bag) 250 ML 12.5 MG CONT INF (08:46)
--- NOTE | 2024-12-15 11:37 | PCM.PN.HOSP ---
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 Patient has no complaints to this examiner. Objective Data Objective Data Vital Signs: Vital Signs Temp Pulse Resp BP Pulse Ox O2 Del Method 97.6 F L 55 L 14 116/71 95 Room Air 12/15/24 08:21 12/15/24 08:24 12/15/24 08:24 12/15/24 08:21 12/15/24 08:24 12/15/24 08:24 Oxygen Delivery Method Room Air Weight: 68.2 kg Body Mass Index (BMI) 25.7 Intake & Output: Intake and Output for Last 24 Hours 12/13/24 12/14/24 12/15/24 23:59 23:59 23:59 Intake Total 1942.33 / 2396.33 651 / 651 Balance 1942. / 2396.33 651 / 651 Lab / Micro Data 12/14/24 06:03 12/12/24 06:33 Physical Exam Narrative alert, oriented x3 and no apparent distress Constitutional Narrative: Patient appears older than her stated age General Appearance: cooperative, well kempt and well developed Orientation / Consciousness: awake, oriented to person, oriented to place and oriented to time HEENT normocephalic, head/scalp atraumatic and moist oral mucous membranes Eyes PERRL, EOMs intact bilaterally and conjunctivae normal Neck supple, no JVD, thyroid normal and no carotid bruits General: trachea midline Resp normal respiratory effort, no retractions, no use of accessory muscles and clear to auscultation bilaterally Auscultation: Negative for rales, rhonchi or wheezes Cardio regular rate, regular rhythm, S1 normal heart sound, S2 normal heart sound, no murmurs, no rub and no gallops GI normal to inspection, nondistended, normoactive bowel sounds, soft to palpation, non-tender and non-distended Extremity no clubbing, cyanosis or edema Skin no rashes or lesions noted General Skin Exam: no breakdown Neuro oriented x3, CN's II-XII intact bilaterally, no focal motor deficits and no sensory deficits noted Sensorium / Orientation: awake and alert Speech: speech normal Psych affect normal Assessment & Plan Assessment/Plan (1) ABLA (acute blood loss anemia): PLAN: Plan 1. Acute blood loss anemia-etiology unclear at this time, hemoglobin appears to be stable at this time, will recheck CBC tomorrow #2 Superior mesenteric vein thrombosis-along with inferior mesenteric vein and possible splenic vein thrombosis, patient is not anticoagulated due to acute blood loss anemia #3 alcoholic cirrhosis-complicates care, management, recovery, and prognosis We are currently awaiting bed assignment at [facility] in [place], [place]. Total clinical time spent by myself addressing patient's medical issues, reviewing all of her data, and collaborating with patient's care team: 35-minutes Charges/Coding Visit Charges Inpatient E&M: 27662 Subs Hosp L2
--- NOTE | 2024-12-15 16:29 | NURSING ---
All documentation by acute care nursing assistant Dayana Spivey reviewed by assisted living nursing director Shadia VENEGAS, RN.
[2024-12-15] MEDS: Pantoprazole Sodium 40 MG Tablet PO (22:07)
[2024-12-15] MEDS: traZODone 100 MG Tablet PO (22:11)
[2024-12-16 03:30] VITALS: BP 96/60; PULSE 54; RESP 16; TEMP 36.7; O2SAT 98
[2024-12-16 06:00] VITALS: BMI 25.6
[2024-12-16] MEDS: Lidocaine 5% Patch 1 PATCH TOPICAL (07:58)
[2024-12-16] MEDS: Folic Acid 1 MG Tablet PO (07:59)
[2024-12-16] MEDS: Multivitamins,Therapeutic Tablet 1 TABLET PO (07:59)
[2024-12-16] MEDS: Thiamine Hydrochloride 100 MG Tablet PO (07:59)
[2024-12-16] MEDS: Pantoprazole Sodium 40 MG Tablet PO ×2 (07:59→21:26)
[2024-12-16 08:16] VITALS: BP 106/70; PULSE 55; RESP 16; TEMP 36.6; O2SAT 95
--- NOTE | 2024-12-16 09:23 | PN.HOSP_ITS ---
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 I have decided to change the patient's diet to regular diet today, yesterday I stopped her Protonix and octreotide drips. Objective Data Objective Data Vital Signs: Vital Signs Temp Pulse Resp BP Pulse Ox O2 Del Method 97.9 F 55 L 16 106/70 95 Room Air 12/16/24 08:16 12/16/24 08:16 12/16/24 08:16 12/16/24 08:16 12/16/24 08:16 12/16/24 08:16 Oxygen Delivery Method Room Air Weight: 68.1 kg Body Mass Index (BMI) 25.6 Intake & Output: Intake and Output for Last 24 Hours 12/14/24 12/15/24 12/16/24 23:59 23:59 23:59 Intake Total 2096.33 / 2396.33 1817.08 / 1817.08 Balance 2096.33 / 2396.33 1817.08 / 1817.08 Lab / Micro Data 12/14/24 06:03 12/12/24 06:33 Physical Exam Narrative alert, oriented x3 and no apparent distress Constitutional Narrative: Patient appears older than her stated age General Appearance: cooperative, well kempt and well developed Orientation / Consciousness: awake, oriented to person, oriented to place and oriented to time HEENT normocephalic, head/scalp atraumatic and moist oral mucous membranes Eyes PERRL, EOMs intact bilaterally and conjunctivae normal Neck supple, no JVD, thyroid normal and no carotid bruits General: trachea midline Resp normal respiratory effort, no retractions, no use of accessory muscles and clear to auscultation bilaterally Auscultation: Negative for rales, rhonchi or wheezes Cardio regular rate, regular rhythm, S1 normal heart sound, S2 normal heart sound, no murmurs, no rub and no gallops GI normal to inspection, nondistended, normoactive bowel sounds, soft to palpation, non-tender and non-distended Extremity no clubbing, cyanosis or edema Skin no rashes or lesions noted General Skin Exam: no breakdown Neuro oriented x3, CN's II-XII intact bilaterally, no focal motor deficits and no sensory deficits noted Sensorium / Orientation: awake and alert Speech: speech normal Psych affect normal Assessment & Plan Assessment/Plan (1) Inferior mesenteric vein thrombosis: (2) ABLA (acute blood loss anemia): PLAN: Plan 1. Acute blood loss anemia-etiology unclear at this time, hemoglobin appears to be stable at this time #2 Superior mesenteric vein thrombosis-along with inferior mesenteric vein and possible splenic vein thrombosis, patient is not anticoagulated due to acute blood loss anemia #3 alcoholic cirrhosis-complicates care, management, recovery, and prognosis We are currently awaiting bed assignment at [facility] in [place], [place]. Total clinical time spent by myself addressing patient's medical issues, reviewing all of her data, and collaborating with patient's care team: 35- minutes Charges/Coding Visit Charges Inpatient E&M: 14256 Subs Hosp L2
[2024-12-16 10:16] LABS: Absolute Lymphocyte Count 0.51 X10^3/uL (0.83-4.51); Absolute Neutrophil Count 1.1 X10^3/uL (2.0-7.7); Basophil# 0.04 X10^3/uL; Basophil% 1.9 % (0-1); Eosinophil# 0.09 X10^3/uL; Eosinophils% 4.2 % (0-5); Hematocrit 28.7 % (37-47); Hemoglobin 8.4 g/dL (12.0-15.0); Lymphocyte # 0.51 X10^3/ul (0.83-4.51); Lymphocyte % 23.8 % (19-41); Mean Corp Hgb Conc 29.3 g/dL (32-36); Mean Corpuscular Hgb 24.3 pg (27.0-32.0); Mean Corpuscular Volume 83.2 fL (81-99); Mean Platelet Vol. 11.6 fl (6.2-12.0); Monocyte# 0.36 X10^3/uL; Monocyte% 16.8 % (0-10); NRBC Flagged by Analyzer 0 % (0-5); Neutrophil # 1.13 X10^3/uL (2.7-7.7); Neutrophil % 52.8 % (47-70); POSITIVE COUNT YES; POSITIVE DIFFERENTIAL YES; Platelet Count 75 K/mm3 (150-450); RBC Distribution Width CV 19.6 % (11.6-14.6); RBC Distribution Width SD 58.9 fl (35.1-43.9); Red Blood Count 3.45 M/mm3 (4.2-5.4); White Blood Count 2.1 K/mm3 (4.4-11.0)
[2024-12-16 10:28] LABS: Differential Indicated SCAN CRITERIA MET
[2024-12-16 11:01] VITALS: BP 110/71; PULSE 58; RESP 16; TEMP 36.6; O2SAT 98
[2024-12-16 11:51] LABS: Platelet Estimate MOD DEC (ADEQ)
[2024-12-16 11:52] LABS: Pathologist Review May foll
[2024-12-16 14:55] VITALS: BP 116/62; PULSE 58; RESP 16; TEMP 36.9; O2SAT 100
[2024-12-16 20:14] VITALS: BP 143/80; PULSE 58; RESP 16; TEMP 36.9; O2SAT 99
[2024-12-16 22:49] VITALS: BP 119/71; PULSE 59; RESP 16; TEMP 36.9; O2SAT 98
[2024-12-16] MEDS: traZODone 100 MG Tablet PO (22:50)
[2024-12-17 04:20] VITALS: BP 102/58; PULSE 78; RESP 16; TEMP 36.6; O2SAT 99
[2024-12-17] MEDS: 0.9% Saline Lock 10 ML Syringe IV (04:20)
[2024-12-17 06:00] VITALS: BMI 25.7
[2024-12-17] MEDS: Pantoprazole Sodium 40 MG Tablet PO ×2 (09:48→20:26)
[2024-12-17] MEDS: Thiamine Hydrochloride 100 MG Tablet PO (09:49)
[2024-12-17] MEDS: Multivitamins,Therapeutic Tablet 1 TABLET PO (09:49)
[2024-12-17] MEDS: Folic Acid 1 MG Tablet PO (09:49)
[2024-12-17] MEDS: Lidocaine 5% Patch 1 PATCH TOPICAL (09:49)
[2024-12-17 10:07] VITALS: BP 91/63; PULSE 76; RESP 16; TEMP 36.8; O2SAT 99
--- NOTE | 2024-12-17 10:53 | NURSING ---
called [facility] Talked with Latrice, discussed long wait for bed. aware Latrice is going to reach out to nurse Jana as well as embedded linux engineer as states no bed available at this time.
[2024-12-17 15:39] VITALS: BP 108/66; PULSE 63; RESP 16; TEMP 36.7; O2SAT 98
--- NOTE | 2024-12-17 15:40 | DS.PCM_ITS ---
Providers Date of Admission: 12/09/24 Date of Discharge: 12/17/24 Primary Care Physician: Lady Primary Care Phys Consultations 12/10/24 04:17 Consult: Gastroenterology Routine Consulting Provider: Chelsy Gastroentercathy Reason for Consult: ABLA EMERGENT Consult: No MD Notified: Yes Date Notified: 12/10/24 Time Notified: 06:55 Method of Notification: Text Reason For Visit: SEVERE ANEMIA, CHRONIC CIRRHOSIS & SPLENIC Diagnosis Discharge Diagnosis (1) Inferior mesenteric vein thrombosis: Status: Acute Code(s): K55.069 - Acute infarction of intestine, part and extent unspecified (2) ABLA (acute blood loss anemia): Status: Resolved Code(s): D62 - Acute posthemorrhagic anemia Plan 1. Acute blood loss anemia due to suspected upper GI bleed #2 Superior mesenteric vein thrombosis-along with inferior mesenteric vein and possible splenic vein thrombosis, patient is not anticoagulated due to acute blood loss anemia #3 alcoholic cirrhosis-complicates care, management, recovery, and prognosis #4 hypokalemia #5 alcohol intoxication #6 chronic alcohol use disorder #7 pancytopenia secondary to alcoholic cirrhosis We are currently awaiting bed assignment at [facility] in [place], [place]. Total clinical time spent by myself addressing patient's medical issues, reviewing all of her data, and collaborating with patient's care team: 35- minutes Medications at Discharge Home Medications omeprazole 20 mg tablet,delayed release 40 mg PO DAILY ask pcp 12/09/24 pediatric multivit no.17-ferrous fumarate 15 mg iron chewable tablet 2 tab PO DAILY ask pcp 12/09/24 Hospital Course Operations None Procedures Blood transfusion Summary of Care Provided Minutes Spent on Discharge: 31 Hospital Course: This 49 white female was seen in the emergency room at [facility] with a chief complaint of weakness. Patient also stated that she wanted detox from alcohol. Workup in the emergency room included CBC which showed a white blood cell count of 1.9, hemoglobin was 4.4, potassium was 3.3, and the patient's alcohol level was 324. Patient was given IV fluids and a CTA of her abdomen pelvis was obtained which showed concern for portal hypertension, there is also noted to be a thrombus present within the superior mesenteric, inferior mesenteric, and potential splenic vein. Patient was given a gram Rocephin the case was discussed with the hospitalist service, since there was not a director of revenue cycle management on-call it was felt that the patient should be shipped to a tertiary hospital for further care, [facility] was originally contacted but they stated that the patient was established with [facility] and so arranges were made for the patient to go to [facility] who accepted the patient but did not have a bed available. Patient was admitted to [place] [address] and was transfused 4 units packed red blood cells, she was placed on a Protonix drip and octreotide drip, she was seen in consultation by gastroenterology. Patient was placed on phenobarbital but had no evidence of alcohol withdrawal while she was hospitalized. Patient was replacement potassium. Patient then left AMA briefly on 12/09/2024 I will need to return to the hospital. On 12/17/2024, we received word that [facility] had a bed assignment, she was seen and examined that day by myself: On examination she appeared in good health and spirits, she does not appear to be in any distress. Vital signs as documented. Skin warm and dry and without overt rashes. Neck without JVD, thyroid appears normal, trachea is midline, neck is supple. Lungs clear, normal air movement was noted. Heart exam notable for regular rhythm, normal sounds and absence of murmurs, rubs or gallops. Abdomen unremarkable and without evidence of organomegaly, masses, or abdominal aortic enlargement, bowel sounds are present in all 4 quadrants, no abdominal tenderness was noted. Extremities nonedematous, no cyanosis was noted, no clubbing was noted. Neuro: Cranial nerves II through XII are grossly intact, no focal motor deficits were noted, sensation to light touch and pinprick is intact, motor exam 5/5 throughout. Psych: Patient is alert and oriented x3, she does not appear anxious or depressed, she does not appear agitated. Patient was transferred to [facility] for further care in stable condition on 12/17/2024 Weight / BMI Weight Weight: 68.2 kg Body Mass Index (BMI) 25.7 ABG / Lab / Microbiology Data 12/16/24 09:50 12/12/24 06:33 D/C Instructions DC O2, CPAP, BIPAP Needs Home O2 Discharge instructions: No Meaningful Use Info Meaningful Use Meaningful Use Diagnoses (Choose all that apply): None applicable Ischemic Stroke Statin Dosing Therapy Reference: STATIN DOSE THERAPY REFERENCE: * Patients > 75 years receive moderate or high dose statin therapy. * Patients 75 years or YOUNGER should receive HIGH intensity statin dose unless contraindicated. You will be required to document reason for non-treatment if statin daily dose does not meet guidelines. HIGH DOSE STATIN THERAPY DAILY Atorvastatin > than or = to 40 mg Rosuvastatin > than or = to 20 mg Amlodipine + Atorvastatin > than or = to 2.5/40 mg Ezetimibe + Simvastatin 10/80 mg Simvastatin 80mg Discharge Plan Admission Admit Date/Time: 12/09/24 19:34 Attending Provider: Guillermo Paul Primary Care Provider: Care Physician,No Primary Consulting Providers: Philip Deras; Raffi Riggins Discharge Orders/Prescriptions Prescriptions: No Action omeprazole 20 mg tablet,delayed release (DR/EC) 40 mg PO DAILY pedi multivit 17-iron fumarate 15 mg iron tablet,chewable 2 tab PO DAILY Referrals / Follow Up: Care Physician,No Primary [Primary Care Provider] - Disposition Disposition (needs filled in before D/C Order can be placed): Acute Care Hospital Charges/Coding Visit Charges Inpatient E&M: 12099 Disch Hosp >30min
--- NOTE | 2024-12-17 16:12 | PCA ---
[place] call center called with a bed assignment for patient. Pt going to [facility], Accepting Physician . Bed assignment is 5025. [facility] called for transport ETA 2.5-3 hrs
[2024-12-17 20:29] VITALS: BP 115/70; PULSE 68; RESP 18; TEMP 36.9; O2SAT 98
== END 2024-12-17 21:45 | disposition short-term general hospital (02) | DRG 393 ==
LOC: ED 18:13 → PCU 19:45 → MS3 12-10 10:51
PROVIDERS: Internal Medicine Gastroenterology; Admitting Provider Internal Medicine; Emergency Provider Emergency Medicine; Visit Provider Internal Medicine
DX: K55.069 Acute infarction of intestine, part and extent unspecified (principal); G92.9 Unspecified toxic encephalopathy; I82.890 Acute embolism and thrombosis of other specified veins; D62 Acute posthemorrhagic anemia; I82.891 Chronic embolism and thrombosis of other specified veins; K92.2 Gastrointestinal hemorrhage, unspecified; K70.31 Alcoholic cirrhosis of liver with ascites; F10.229 Alcohol dependence with intoxication, unspecified; E83.42 Hypomagnesemia; D72.819 Decreased white blood cell count, unspecified; F91.9 Conduct disorder, unspecified; E87.6 Hypokalemia; Z53.29 Procedure and treatment not carried out because of patient's decision for other reasons; Z87.891 Personal history of nicotine dependence; Y90.0 Blood alcohol level of less than 20 mg/100 ml
CPT/HCPCS: 36415; 80048; 80053; 80143; 80307; 81025; 82077; 83735; 84100; 85025; 94668; 97162; 97530; 99285; 99406; A4216